=== PATIENT | female | born 1945 | race Caucasian/White ===

== ENCOUNTER 2018-10-21 13:06 | Inpatient (IN) ==
--- NOTE | 2018-10-21 13:31 | Emergency Department Note ---
Altered Mental Status HPI - General Chief Complaint: Altered Mental Status Stated Complaint: altered mental status Time Seen by Provider: 10/21/18 13:22 Source: other Mode of arrival: wheelchair Limitations: altered mental status - History of Present Illness HPI Narrative: This 73-year-old female lives at [facility] in [place], a group home [facility]. She is transported here due to 3 days of decreased mental status acuity and interactivity. She has had several falls last week. Her baseline is alert and oriented and ambulates. On admission to the emergency room here a temperature of 99.9, pulse 93 a little bit of the low blood pressure with systolic 86/51. Patient and her care facility has narcotics ordered but does not appear to have had a real recent dose. She has some bruising of her bilateral shoulders. 3 weeks ago she was admitted at [facility] for hyperkalemia and on discharge was to do follow-up to have the low back pain and leg pain treated. She has had this gradually increasing over severe. She has a history of being injected with steroid and anesthetic by Dr. Jones for sciatica. REVIEW OF SYSTEMS: No chills or known recent fevers. Edema seems to have significantly worsened. Her Spironolactone was not discontinued when she was readmitted to [facility] in spite of reported discharge instructions to discontinue it. No nausea or vomiting. No stomach pain. No diarrhea. No dysuria or frequency. No chest pain. No shortness of breath. - Related Data Home Medications Medication Instructions Recorded Confirmed Albuterol Sulfate [Proventil Hfa] 6.7 gm IH PRN PRN 10/21/18 10/21/18 Aspirin [Lite Coat Aspirin] 325 mg PO DAILY 10/21/18 10/21/18 Cyanocobalamin (Vitamin B-12) 1,000 mcg PO DAILY 10/21/18 10/21/18 [Vitamin B-12] Ergocalciferol (Vitamin D2) 50,000 unit PO WEEKLY 10/21/18 10/21/18 [Vitamin D2] Ferrous Sulfate [Iron] 325 mg PO BID 10/21/18 10/21/18 Furosemide [Lasix] 40 mg PO DAILY 10/21/18 10/21/18 Gabapentin 600 mg PO BID 10/21/18 10/21/18 HYDROcodone/ACETAMINOPHEN [[place] 1 each PO PRN PRN 10/21/18 10/21/18 10-325 Tablet] Lidocaine [Lidocaine Pain Relief] 1 each TP DAILY 10/21/18 10/21/18 Methocarbamol [Robaxin-750] 750 mg PO Q6 PRN 10/21/18 10/21/18 Ranitidine HCl [Heartburn Relief] 150 mg PO BID 10/21/18 10/21/18 Spironolactone [Aldactone] 25 mg PO BID 10/21/18 10/21/18 Allergies Allergy/AdvReac Type Severity Reaction Status Date / Time No Known Drug Allergies Allergy Unverified 10/21/18 13:20 Past Medical History - Social History smoking status: Unknown if ever smoked Physical Exam Limitations: altered mental status General appearance: alert (intermittentl), in distress (With intermittent [id number] movements with knees up. More comfortable sitting at times.), sleepy Head: atraumatic, normocephalic Eye: Present: EOMI ENT: mucous membranes dry Neck: Present: trachea midline. Absent: lymphadenopathy, thyromegaly Chest: Present: symmetric chest wall rise Respiratory: Present: normal lung sounds bilaterally (Somewhat distant.). Absent: respiratory distress, wheezes, stridor, accessory muscle use, prolonged expiratory phase Cardiovascular: Present: regular rate, normal rhythm. Absent: systolic murmur, diastolic murmur Abdominal: Present: other (Abdomen seems rather firm but seems to have rather pronounced abdominal muscles.). Absent: distention, tenderness, guarding, rebound, rigidity, organomegaly, mass Extremities: Present: pretibial edema (23 pitting edema bilateral.). Absent: pedal edema, calf tenderness Back: Absent: CVA tenderness (R), CVA tenderness (L), spinous process tenderness Neurological: Present: alert, oriented X3 Psychiatric: Present: serious. Absent: agitated, anxious, tearful Skin: Present: warm, dry, other (Anterior lower half of her tibial regions are quite dry with some cracking trace pinkness and trace warmth.) Course Vital Signs Temperature 99.9 F H 10/21/18 13:15 Pulse Rate 93 H 10/21/18 13:15 Respiratory Rate 21 10/21/18 13:15 Blood Pressure 86/51 10/21/18 13:15 Temperature 98.9 F 10/21/18 20:59 Pulse Rate 96 H 10/21/18 20:41 Respiratory Rate 15 10/21/18 20:59 Blood Pressure 79/60 10/21/18 20:41 Pulse Oximetry (%) 93 10/21/18 20:41 Altered Mental Status - MDM Narrative Medical decision making narrative: Patient admitted admitted to the emergency room with 3-day history of mental status and some falls. Review of her chart indicates that she has had some narcotics prescribed. She continues to be on Spironolactone 25 twice daily in spite of her recent admission to [facility] for hyperkalemia 3 weeks ago. Low-grade fever of 99.9 and possibly low blood pressure necessitating metabolic and infectious/septic work-up. Return of labs includes a white count that is normal at 4.7. She still has anem ia similar to previous. Lactic acid is normal at 0.8. Metabolic panel includes a creatinine of 1.3 which is actually better than previously at 1.5. 4:25 PM approximately - discussing with patient's daughter, etc., request for if possible Dr. Jones, interventional radiologist at [facility], to repeat the injection that made such a difference in her difficult to control back pain. 5:10 PM - I spoke with hospitalist, Dr. Corinne Dominique, at [facility]. We thoroughly reviewed patient's medical and pain issues. Conclusion is to have patient's medical problems evaluated and further treated and medically maximized before considering pain intervention which could be done outpatient. Pending consultation with hospitalist. - Medical Records Medical records reviewed: Yes I reviewed the patient's medical records. - Lab Data Lab results reviewed: Yes I reviewed the patient's lab results. Result diagrams: 10/21/18 13:23 10/21/18 13:23 Lab Results 10/21/18 10/21/18 10/21/18 Range/Units 13:23 13:23 13:23 WBC 4.7 (4.5-11.0) K/mcL RBC 3.73 L (4.00-5.20) M/mcL Hgb 11.1 L (12.0-15.0) g/dL Hct 32.7 L (36.0-48.0) % POC Hct (36.0-48.0) % MCV 87.8 (80.0-100.0) fL MCH 29.7 (26.0-34.0) pg MCHC 33.8 (31.0-36.0) g/dL RDW 18.8 H (11.5-14.5) % Plt Count 229 (140-440) K/mcL MPV 9.6 (7.4-10.4) fL Gran % 71.0 (38.0-78.0) % Lymph % (Auto) 13.9 L (15.5-49.0) % [place] % (Auto) 13.6 H (1.0-12.0) % Eos % (Auto) 0.8 (0.0-7.0) % Baso % (Auto) 0.7 (0.0-2.0) % Gran # 3.4 (1.8-8.0) K/mcL Lymph # (Auto) 0.7 L (1.5-4.8) K/mcL [place] # (Auto) 0.6 (0.1-0.9) K/mcL Eos # (Auto) 0 (0.0-0.7) K/mcL Baso # (Auto) 0 (0.0-0.3) K/mcL VBG Lactic Acid 0.8 (0.5-2.0) mmol/L POC Sodium (133-145) mmol/L Sodium 126 L (133-145) mmol/L POC Potassium (3.3-5.1) mmol/L Potassium 6.3 H* (3.3-5.1) mmol/L POC Chloride (96-108) mmol/L Chloride 95 L (96-108) mmol/L Carbon Dioxide 17 L (22-30) mmol/L POC Total CO2 (22-30) mmol/L Anion Gap 14.0 (8-16) POC BUN (8-23) mg/dl BUN 30 H (8-23) mg/dl Creatinine 1.3 H (0.6-1.1) mg/dl POC Creatinine (0.6-1.1) mg/dl GFR Calculation 41 Glucose 78 (70-105) mg/dL POC Glucose (70-105) mg/dL Calcium 9.2 (8.6-10.4) mg/dl POC WB Ioniz Calcium (1.16-1.32) mmol/L Total Bilirubin 0.4 (0.0-1.0) mg/dL AST 36 (0-37) U/l ALT 15 (0-40) U/l Alkaline Phosphatase 88 (39-117) U/L Troponin T (0-0.03) ng/ml C-Reactive Protein 3.4 H (0.0-0.8) mg/dl Total Protein 6.9 (5.9-8.4) gm/dL Albumin 3.9 (3.2-5.2) gm/dL Globulin 3.0 (2.2-3.7) gm/dL Albumin/Globulin Ratio 1.3 (1.0-2.3) Urine Color Urine Appearance Urine pH (5.0-9.0) Ur Specific [place] (1.000-1.035) Urine Protein (NEG) mg/dL Urine Glucose (UA) (NEG) mg/dL Urine Ketones (NEG) mg/dL Urine Occult Blood (<0.03) mg/dL Urine Nitrate (NEG) Urine Bilirubin (NEG) mg/dL Urine Urobilinogen (NEG) mg/dL Ur Leukocyte Esterase (NEG) /uL Urine RBC (0-1) /hpf Urine WBC (0-4) /hpf Ur Squamous Epith Cells (0-4) /hpf Ur Transition Epith Cell (0-2) /hpf Urine Bacteria (0) /hpf Urine Mucus (0) /hpf Ur Culture Indicated? 10/21/18 10/21/18 10/21/18 Range/Units 13:23 13:53 18:27 WBC (4.5-11.0) K/mcL RBC (4.00-5.20) M/mcL Hgb (12.0-15.0) g/dL Hct (36.0-48.0) % POC Hct 34.0 L (36.0-48.0) % MCV (80.0-100.0) fL MCH (26.0-34.0) pg MCHC (31.0-36.0) g/dL RDW (11.5-14.5) % Plt Count (140-440) K/mcL MPV (7.4-10.4) fL Gran % (38.0-78.0) % Lymph % (Auto) (15.5-49.0) % Union % (Auto) (1.0-12.0) % Eos % (Auto) (0.0-7.0) % Baso % (Auto) (0.0-2.0) % Gran # (1.8-8.0) K/mcL Lymph # (Auto) (1.5-4.8) K/mcL Union # (Auto) (0.1-0.9) K/mcL Eos # (Auto) (0.0-0.7) K/mcL Baso # (Auto) (0.0-0.3) K/mcL VBG Lactic Acid (0.5-2.0) mmol/L POC Sodium 129 L (133-145) mmol/L Sodium (133-145) mmol/L POC Potassium 5.4 H (3.3-5.1) mmol/L Potassium (3.3-5.1) mmol/L POC Chloride 98 (96-108) mmol/L Chloride (96-108) mmol/L Carbon Dioxide (22-30) mmol/L POC Total CO2 21 L (22-30) mmol/L Anion Gap (8-16) POC BUN 25 H (8-23) mg/dl BUN (8-23) mg/dl Creatinine (0.6-1.1) mg/dl POC Creatinine 1.1 (0.6-1.1) mg/dl GFR Calculation Glucose (70-105) mg/dL POC Glucose 89 (70-105) mg/dL Calcium (8.6-10.4) mg/dl POC WB Ioniz Calcium 1.21 (1.16-1.32) mmol/L Total Bilirubin (0.0-1.0) mg/dL AST (0-37) U/l ALT (0-40) U/l Alkaline Phosphatase (39-117) U/L Troponin T 0.03 (0-0.03) ng/ml C-Reactive Protein (0.0-0.8) mg/dl Total Protein (5.9-8.4) gm/dL Albumin (3.2-5.2) gm/dL Globulin (2.2-3.7) gm/dL Albumin/Globulin Ratio (1.0-2.3) Urine Color Straw Urine Appearance Clear Urine pH 5.0 (5.0-9.0) Ur Specific [place] 1.012 (1.000-1.035) Urine Protein Neg (NEG) mg/dL Urine Glucose (UA) Negative (NEG) mg/dL Urine Ketones Neg (NEG) mg/dL Urine Occult Blood Neg (<0.03) mg/dL Urine Nitrate Neg (NEG) Urine Bilirubin Neg (NEG) mg/dL Urine Urobilinogen Neg (NEG) mg/dL Ur Leukocyte Esterase 25 A (NEG) /uL Urine RBC 1 (0-1) /hpf Urine WBC 1 (0-4) /hpf Ur Squamous Epith Cells 1 (0-4) /hpf Ur Transition Epith Cell < 1 (0-2) /hpf Urine Bacteria 0 (0) /hpf Urine Mucus Few (0) /hpf Ur Culture Indicated? No - Radiology Data Radiology results reviewed: Yes I reviewed the patient's radiology results. - EKG Data EKG results narrative: No acute coronary syndrome findings. This ECG will be read by a wildlife ecology professor. Disposition Pt seen by POWER GENER[employer] PLANT OPERATOR/PA only: No Clinical Impression: Mental status, decreased, Lumbar radiculopathy, acute, Hyperkalemia, Hyponatremia, Falls frequently Contusion of shoulder area Qualifiers: Encounter type: initial encounter Laterality: unspecified laterality Qualified Code(s): S40.019A - Contusion of unspecified shoulder, initial encounter Summary: Patient's hyperkalemia probably related to Spironolactone not being discontinued. She has chronic renal disease in the past declared to be stage III. Creatinine was 1.3. Her potassium here was 6.3. Sodium is 126. Her blood pressures usually are 104-126. Several times here were in the 80s or 90s. Her mental status seemed to be intermittently very capable and interactive and appropriate and good historian but she was quite sleepy. She was very restless with difficulties controlling pain by rolling into different positions repeatedly and patiently. Blood cultures and urine cultures were ordered. She will urine dip showed positive leukocyte but on microbiology there was no l eukocytes and no bacteria. Culture was ordered. She has significant edema bilateral lower extremities. Eventually conclusions with repeat CT scan being unremarkable for any new findings and with not being able to transfer to [facility] for possible injection therapy for the cause of her pain etc., was accepted to be admitted here. Disposition: Xfer As Inpt ([facility]) Condition: Fair Referrals: Jordan Snell DO [Primary Care Provider] -
[2018-10-21] MEDS ORDERED: CALCIUM CHLORIDE 1,000 MG in DEXTROSE 5% IN WATER 50 ML IV ONE (13:51)
[2018-10-21] MEDS ORDERED: FUROSEMIDE 40 MG/4 ML VIAL IV ONE (13:52)
[2018-10-21 14:05] LABS: Basophils # (Auto) 0 K/mcL (0.0-0.3); Basophils % (Auto) 0.7 % (0.0-2.0); Eosinophils # (Auto) 0 K/mcL (0.0-0.7); Eosinophils % (Auto) 0.8 % (0.0-7.0); Lymphocytes # (Auto) 0.7 K/mcL (1.5-4.8); Lymphocytes % (Auto) 13.9 % (15.5-49.0); Mean Cell Volume 87.8 fL (80.0-100.0); Mean Corpuscular HGB Conc 33.8 g/dL (31.0-36.0); Monocytes # (Auto) 0.6 K/mcL (0.1-0.9); Monocytes % (Auto) 13.6 % (1.0-12.0); Platelet Count 229 K/mcL (140-440); RBC 3.73 M/mcL (4.00-5.20); Red Cell Distribution Width 18.8 % (11.5-14.5)
[2018-10-21] MEDS ORDERED: CALCIUM CHLORIDE 1,000 MG/10 ML SYRINGE IV ONE (14:17)
[2018-10-21 14:27] LABS: Appearance,Urine CLEAR; Bacteria,Urine 0 /hpf (0); Bilirubin,Urine NEG (NEG); Color,Urine STRAW; Glucose,Urine (UA) NEGATIVE (NEG); Leukocyte Esterase,Urine 25 /uL (NEG); Mucus,Urine FEW /hpf (0); Protein,Urine NEG (NEG); Specific Gravity,Urine 1.012 (1.000-1.035); Urine Blood NEG mg/dL (<0.03); Urine RBC 1 /hpf (0-1); Urine Squamous Epithelial Cell 1 /hpf (0-4); Urine Transitional Epi Cells < 1 /hpf (0-2); Urine WBC 1 /hpf (0-4); Urobilinogen,Urine NEG (NEG)
[2018-10-21 14:35] LABS: ALT/SGPT 15 U/l (0-40); Albumin 3.9 gm/dL (3.2-5.2); Albumin/Globulin Ratio 1.3 (1.0-2.3); Alkaline Phosphatase 88 U/L (39-117); Blood Urea Nitrogen 30 mg/dl (8-23); C-Reactive Protein 3.4 mg/dl (0.0-0.8)
[2018-10-21] MEDS ORDERED: 0.9 % SODIUM CHLORIDE 1,000 ML IV ONE ×2 (14:39→15:32)
--- NOTE | 2018-10-21 15:10 | Cat Scan Report ---
CLINICAL INFORMATION: Fusion COMPARISON: None. TECHNIQUE: 2.5 mm helical slices were obtained in the skull base to vertex. Following reconstruction, axial reformatted images were reviewed at bone and parenchymal windows. The exam was performed using radiation dose optimization techniques including, but not limited to, automated exposure control, adjustment of the mA and/or kV according to patient size and use of iterative reconstruction technique. FINDINGS: Motion artifact mildly degrading the quality of images. The ventricles, sulci, fissures, and cisterns are normal in size and configuration for the patient's age. No extra-axial fluid collections are identified. Patchy chronic ischemic changes noted the deep cerebral white matter - typical for age. The cerebrum, brainstem and cerebellum are otherwise, unremarkable. There is no evidence of hemorrhage, mass effect, or edema. Bone windows show no osseous abnormality. IMPRESSION: Minimal atrophy and patchy chronic ischemic changes in the the cerebral white matter that typical for age. No acute finding Interpreted and Authenticated by: Jordan Covington 10/21/18
[2018-10-21] MEDS ORDERED: ONDANSETRON 4 MG/2 ML VIAL IV ONE (15:22)
[2018-10-21] MEDS: HYDROmorphone 2 MG/ML VIAL IV PRN ×4 (15:32→19:53)
--- NOTE | 2018-10-21 18:45 | Cat Scan Report ---
CLINICAL INFORMATION: Trauma now with back pain COMPARISON: None. TECHNIQUE: 0.625 mm helical slices were obtained from the mid T12 through mid S2 vertebral bodies. Following reconstruction, 2.5 mm coronal, sagittal, and axial reformations (angle to the disc spaces) were processed. Exam was reviewed at bone and soft tissue windows.The exam was performed using radiation dose optimization techniques including, but not limited to, automated exposure control, adjustment of the mA and/or kV according to patient size and use of iterative reconstruction technique. FINDINGS: Sagittal and coronal reformatted images show the lumbar spine is anatomically aligned. There are no fractures. Moderate size Schmorl's nodes invaginate the L2, L3 and L4 endplates. No significant osseous abnormality. Soft tissues are unremarkable. T11-T12, T12-L1 and L1-2 disc levels are normal. At L2-3, minimal broad disc spur complex and facet arthropathy results in minimal central canal narrowing. At L3-4, mild broad disc protrusion, ligament flavum enlargement and facet arthropathy result in moderate central canal, likely bilateral lateral recess and mild bilateral IV foraminal narrowing with probable impingement of the descending L4 nerve roots. At L4-5, moderate broad disc protrusion, ligament flavum enlargement and facet arthropathy result in moderate central canal, bilateral lateral recess and IV foraminal narrowing and mild impingement of the exiting L4 and the descending L5 nerve roots. L5-S1, a mild broad disc protrusion with bilateral facet arthropathy appreciated. IMPRESSION: No fracture or other posttraumatic change. Degenerative changes, most severe at L2-3 and L3-4, as described Interpreted and Authenticated by: Jordan Covington 10/21/18
[2018-10-21] MEDS ORDERED: DEXAMETHASONE 10 MG/ML VIAL IV ONE ×2 (21:11→22:50)
--- NOTE | 2018-10-21 22:09 | Internal Med History&Physical ---
Medical - H&P: HPI Patient information: Note initiated : 10/21/18 at 10:05 pm Service Date, if different from initiated Date: [] Patient: Nany Lara a 73 y/o F admitted on for Altered Mental Status. Chief Complaint: [] History of present illness: Ms. Lara is a 73 year old F Who presents the ED from residential facility with decreased level of consciousness /weakness. While she was here she also was noted to complain of her chronic back pain with radiculopathy, but this was not the primary reason why she was sent in. Patient was at [facility] 3 weeks ago for hyperkalemia. Her Aldactone was stopped. However it still on her medication list does sound like she is been getting it at the nursing facility. He was found to have calcium 6.3 when she came in and a sodium of 126. She reports poor oral intake cannel not much else other than coffee. She had a CT brain which is unremarkable EKG showed no changes from previous she had a lumbar CT which does show degenerative joint and disc protrusions no acute fractures. I do not have all labs but apparently from the ED note her creatinine is 1.3 and it was recently 1.5. She is on [place] as well as Robaxin and gabapentin. She has received an epidural injection by Dr. Jones in the recent past which could improvement in radiculopathy. It sounds like she sees [facility] pain management as well. She denies any complaints other than feeling weak. She is drowsy in the ED after narcotic medications for pain. She is sitting up in bed does not complain of any pain at this time. Family member states that when she is laying on her back is when she is in significant amount of pain but when she sitting up she is comfortable. She did receive IV fluids with Lasix and calcium gluconate and a repeat potassium which was 5.4. Review of Systems: Pertinent positives as above. Denies headache/fever/chills/nausea/vomiting/chest or abdominal pain/cough /dyspnea/diarrhea. Main 10 point review of systems reviewed negative Medical - H&P: PMH Medical history: Medical History (Last Updated 10/21/18 @ 21:22 by Niall Cameron DO) Edema (Acute) Peripheral arterial disease (Chronic) Chronic anticoagulation (Chronic) CKD (chronic kidney disease), stage III (Chronic) Hypotension (Chronic) Sciatica (Chronic) chronic low back pain Anemia (Chronic) GERD MAXINE Past surgical history: Stent to the leg Social History Patient resides at [facility] Smokes a few cigarettes per day Drink alcohol rarely Uses a walker to ambulate Medical - H&P: Meds Home Medications Medication Instructions Recorded Confirmed Type Albuterol Sulfate [Proventil Hfa] 6.7 gm IH PRN PRN 10/21/18 10/21/18 History Aspirin [Lite Coat Aspirin] 325 mg PO DAILY 10/21/18 10/21/18 History Cyanocobalamin (Vitamin B-12) 1,000 mcg PO DAILY 10/21/18 10/21/18 History [Vitamin B-12] Ergocalciferol (Vitamin D2) 50,000 unit PO WEEKLY 10/21/18 10/21/18 History [Vitamin D2] Ferrous Sulfate [Iron] 325 mg PO BID 10/21/18 10/21/18 History Furosemide [Lasix] 40 mg PO DAILY 10/21/18 10/21/18 History Gabapentin 600 mg PO BID 10/21/18 10/21/18 History HYDROcodone/ACETAMINOPHEN [[place] 1 each PO PRN PRN 10/21/18 10/21/18 History 10-325 Tablet] Lidocaine [Lidocaine Pain Relief] 1 each TP DAILY 10/21/18 10/21/18 History Methocarbamol [Robaxin-750] 750 mg PO Q6 PRN 10/21/18 10/21/18 History Ranitidine HCl [Heartburn Relief] 150 mg PO BID 10/21/18 10/21/18 History Spironolactone [Aldactone] 25 mg PO BID 10/21/18 10/21/18 History Allergies Allergy/AdvReac Type Severity Reaction Status Date / Time No Known Drug Allergies Allergy Unverified 10/21/18 13:20 Medical - H&P: Exam - Constitutional Vitals: Temp Pulse Resp BP Pulse Ox 99.2 F H 96 H 20 121/67 93 10/21/18 21:48 10/21/18 20:41 10/21/18 21:48 10/21/18 21:21 10/21/18 20:41 Exam: General: Drowsy ,Awake, No acute Distress Eyes/N/T: EOMI, PEERL, Head/Neck: neck supple, normocephalic atraumatic CV: RRR, No murmurs, normal s1/s2 Pulm: Clear b/l, no wheezing/rhonchi/rales Abd: soft, nontender, +BS x4 Ext: no clubbing/cyanosis. 3+ b/l LE edema Neuro: Drowsy but awakens, no focal deficits, moves all extremities, CN 2-12 grossly intact, symmetrical strength b/l upper/lower, sensations intact b/l upper/lower Skin: warm/dry, venous stasis changes to lower extremities Medical - H&P: Reslt - Labs CBC & Chem 7: 10/21/18 13:23 10/21/18 13:23 Labs: Short CBC 10/21/18 Range/Units 13:23 WBC 4.7 (4.5-11.0) K/mcL Hgb 11.1 L (12.0-15.0) g/dL Hct 32.7 L (36.0-48.0) % Plt Count 229 (140-440) K/mcL BMP 10/21/18 13:23 Sodium 126 L Potassium 6.3 H* Chloride 95 L Carbon Dioxide 17 L BUN 30 H Creatinine 1.3 H Glucose 78 Calcium 9.2 Cardiac Enzymes 10/21/18 Range/Units 13:23 Troponin T 0.03 (0-0.03) ng/ml Liver Function 10/21/18 Range/Units 13:23 Total Bilirubin 0.4 (0.0-1.0) mg/dL AST 36 (0-37) U/l ALT 15 (0-40) U/l Alkaline Phosphatase 88 (39-117) U/L Albumin 3.9 (3.2-5.2) gm/dL Urine 10/21/18 Range/Units 13:53 Urine Color Straw Urine Appearance Clear Urine pH 5.0 (5.0-9.0) Ur Specific [place] 1.012 (1.000-1.035) Urine Protein Neg (NEG) mg/dL Urine Glucose (UA) Negative (NEG) mg/dL Medical - H&P: A/P - Narrative A/P Narrative: A: *AMS (decreased LOC): Multifactorial including sedating medications and metabolic -She is on gabapentin and Robaxin and [place] *Hyponatremia: Poor oral intake and diuretics *Hyperkalemia: Secondary to Aldactone in the setting of CKD *Chronic low back pain and radiculopathy: Has had epidural in the past with success. Follows with pain management *PVD, with stent to the leg by Dr. Jones: *CKD III: *MAXINE: *Generalized weakness/deconditioning/debility: *GERD: *Tobacco abuse: *Chronic peripheral edema P: -Monitor electrolytes -Pain control with heating pad/muscle relaxer/narcotics but with caution. Decrease gabapentin, hold today dose. dexamethasone x1 -May need to consult our pain management group if still have difficulties with sedation and pain -Aldactone stopped. - - -PT/OT -Smoking cessation counseling -ppx: lovenox/home ppi
[2018-10-21] MEDS ORDERED: IPRATROPIUM/ALBUTEROL 3 ML AMPUL.NEB NEB PRN (22:50)
[2018-10-21] MEDS ORDERED: MAGNESIUM SULFATE 2 GM/50 ML BAG IV PRN (22:50)
[2018-10-21] MEDS ORDERED: POLYETHYLENE GLYCOL 3350 17 GM PACKET PO PRN (22:50)
[2018-10-21] MEDS ORDERED: LACTULOSE 20 GM/30 ML ORAL.SOL PO PRN (22:50)
[2018-10-21] MEDS ORDERED: ONDANSETRON 4 MG/2 ML VIAL IV PRN (22:50)
[2018-10-21] MEDS ORDERED: POTASSIUM CHLORIDE 20 MEQ TABLET PO PRN ×2 (22:50)
[2018-10-21] MEDS ORDERED: SENNOSIDES 1 TABLET PO PRN (22:50)
[2018-10-21] MEDS ORDERED: ALBUTEROL SULFATE 1 PUFF INHALER IH PRN (22:50)
[2018-10-21] MEDS ORDERED: METHOCARBAMOL (PP) 750 MG TABLET (#4) PO PRN (22:50)
[2018-10-21] MEDS: METHOCARBAMOL 750 MG TABLET PO PRN (23:33)
[2018-10-21] MEDS: 0.9 % SODIUM CHLORIDE 10 ML SYRINGE IV SCH (23:33)
[2018-10-22 00:37] LABS: Anisocytosis 1+ (NONE SEEN); Band Neutrophils % 1 % (0-10); Basophils % (Manual) 1 % (0-2); Eosinophils % (Manual) 1 % (0-7); Lymphocytes % 20 % (15-49); Monocytes % (Manual) 15 % (1-12); Platelet Estimate NORMAL (NORMAL); RBC Morphology ABNORM (NORMAL); Segmented Neutrophils % 62 % (38-78)
[2018-10-22] MEDS: HYDROcodone/APAP 10/325MG TABLET PO PRN ×3 (05:38→21:30)
[2018-10-22] MEDS: 0.9 % SODIUM CHLORIDE 10 ML SYRINGE IV SCH ×3 (05:39→20:14)
[2018-10-22 06:28] LABS: Basophils # (Auto) 0 K/mcL (0.0-0.3); Basophils % (Auto) 0.1 % (0.0-2.0); Eosinophils # (Auto) 0 K/mcL (0.0-0.7); Eosinophils % (Auto) 0.2 % (0.0-7.0); Granulocytes % (Auto) 91.2 % (38.0-78.0); Lymphocytes # (Auto) 0.3 K/mcL (1.5-4.8); Lymphocytes % (Auto) 6.9 % (15.5-49.0); Mean Cell Volume 88.6 fL (80.0-100.0); Mean Corpuscular HGB Conc 33.1 g/dL (31.0-36.0); Monocytes # (Auto) 0.1 K/mcL (0.1-0.9); Monocytes % (Auto) 1.6 % (1.0-12.0); Platelet Count 218 K/mcL (140-440); RBC 3.91 M/mcL (4.00-5.20); Red Cell Distribution Width 19.3 % (11.5-14.5)
[2018-10-22 06:38] LABS: ALT/SGPT 14 U/l (0-40); Albumin 3.6 gm/dL (3.2-5.2); Albumin/Globulin Ratio 1.2 (1.0-2.3); Alkaline Phosphatase 83 U/L (39-117); Bilirubin,Direct < 0.2 mg/dL (0.0-0.3); Blood Urea Nitrogen 28 mg/dl (8-23); Gamma Glutamyl Transpeptidase 27 U/L (5-36); Uric Acid 6.3 mg/dL (2.5-8.0)
[2018-10-22] MEDS: PIPERACILLIN SODIUM/TAZOBACTAM 2.25 GM in DEXTROSE 5% IN WATER 50 ML IV SCH ×4 (06:54→23:26)
[2018-10-22] MEDS ORDERED: SODIUM BICARBONATE 650 MG TABLET PO ONE (07:11)
--- NOTE | 2018-10-22 07:11 | Internal Med Progress Note ---
Medical - PN: Subj Patient information: Note initiated : 10/22/18 at 6:59 am Service Date, if different from initiated Date: [] Patient: Nany aLra 73 y/o F admitted on 10/21/18 for Altered Mental Status. Chief Complaint: [] Interval history: Ms. Lara is a 73 year old F Who presents [facility] from [facility] with decreased level of consciousness /weakness. While she was here she also was noted to complain of her chronic back pain with radiculopathy, but this was not the primary reason why she was sent in. Patient was at [facility] 3 weeks ago for hyperkalemia. Her Aldactone was stopped. However it still on her medication list does sound like she is been getting it at the nursing facility. He was found to have calcium 6.3 when she came in and a sodium of 126. She reports poor oral intake cannel not much else other than coffee. She had a CT brain which is unremarkable EKG showed no changes from previous she had a lumbar CT which does show degenerative joint and disc protrusions no acute fractures. I do not have all labs but apparently from the ED note her creatinine is 1.3 and it was recently 1.5. She is on [place] as well as Robaxin and gabapentin. She has received an epidural injection by Dr. Jones in the recent past which could improvement in radiculopathy. It sounds like she sees [facility] pain management as well. She denies any complaints other than feeling weak. She is drowsy in the ED after narcotic medications for pain. She is sitting up in bed does not complain of any pain at this time. Family member states that when she is laying on her back is when she is in significant amount of pain but when she sitting up she is comfortable. She did receive IV fluids with Lasix and calcium gluconate and a repeat potassium which was 5.4. 10/22 Patient slept all right last night. Per nurse morphine seems to make her quite drowsy. I saw this morning she was awake and answering questions. She states her pain starts in the right back hip region as described as a shooting pain down the back of her leg to her right knee. Family is present. Denies any other complaints. Urine culture growing gram-negative bacillus and 104 blood draws growing gram-positive bacillus. Cortisol level low and ACTH stimulation test pending. Family she sees Dr. Benavides and will contact him regarding eventual possible epidural injection and further recommendations in the meantime. Review of Systems: denies headache/fever/chills/nausea/vomiting/chest or abdominal pain/cough/dys pnea/diarrhea. Otherwise see above. - Constitutional Vitals: Vital Signs Temp Pulse Resp BP Pulse Ox 97.9 F 96 H 15 108/43 98 10/22/18 04:00 10/22/18 04:40 10/22/18 04:00 10/22/18 04:39 10/22/18 04:40 Period Temp Pulse Resp BP Sys/Bell Pulse Ox Last 24 Hr 97.0 F-99.9 F 79-106 9-35 74-164/43-129 89-100 Intake and Output 10/21/18 10/22/18 10/22/18 21:59 05:59 13:59 Intake Total 1999 Output Total 6150 850 Balance -4150 -850 Weight 58.967 kg Intake & Output: Intake & Output 10/21/18 10/22/18 10/22/18 21:59 05:59 13:59 Intake Total 2000 Output Total 6150 850 Balance -4150 -850 Weight 58.967 kg Intake: IV 2000 Sodium Chloride 0.9% 1,000 ml @ 2000 Wide Open IV BOLUS ONE Rx#: [id number] Output: Urine Catheter Amount 200 Void Amount 6150 650 Other: Urine Appearance Clear Clear Urine Color Bright Yellow Bright Yellow Urine Odor Normal Exam: General: Awake, No acute Distress Eyes/N/T: EOMI, Head/Neck: neck supple, CV: RRR, No murmurs, Pulm: Clear b/l, no wheezing/rhonchi/rales Abd: soft, nontender, +BS x4 Ext: no clubbing/cyanosis. 2+ b/l LE edema chronic Neuro: awake, no focal deficits, moves all extremities, answers all questions Skin: warm/dry, venous stasis changes to lower extremities Medical - PN: Obj Da - Labs CBC & Chem 7: 10/22/18 04:00 10/22/18 04:00 Labs: Abnormal Lab Results 10/22/18 10/22/18 10/21/18 04:00 04:00 18:27 WBC 3.7 L RBC 3.91 L Hgb 11.5 L Hct 34.6 L POC Hct 34.0 L RDW 19.3 H MPV 10.5 H Gran % 91.2 H Lymph % (Auto) 6.9 L Evans % (Auto) Lymph # (Auto) 0.3 L Monocytes % (Manual) RBC Morphology Anisocytosis POC Sodium 129 L Sodium 126 L POC Potassium 5.4 H Potassium 5.8 H Chloride 94 L Carbon Dioxide 18 L POC Total CO2 21 L POC BUN 25 H BUN 28 H Creatinine 1.2 H Magnesium 1.5 L Lactate Dehydrogenase 330 H C-Reactive Protein Ur Leukocyte Esterase 10/21/18 10/21/18 10/21/18 13:53 13:23 13:23 WBC RBC Hgb Hct POC Hct RDW MPV Gran % Lymph % (Auto) Evans % (Auto) Lymph # (Auto) Monocytes % (Manual) 15 H RBC Morphology Abnorm A Anisocytosis 1+ A POC Sodium Sodium 126 L POC Potassium Potassium 6.3 H* Chloride 95 L Carbon Dioxide 17 L POC Total CO2 POC BUN BUN 30 H Creatinine 1.3 H Magnesium Lactate Dehydrogenase C-Reactive Protein 3.4 H Ur Leukocyte Esterase 25 A 10/21/18 13:23 WBC RBC 3.73 L Hgb 11.1 L Hct 32.7 L POC Hct RDW 18.8 H MPV Gran % Lymph % (Auto) 13.9 L Evans % (Auto) 13.6 H Lymph # (Auto) 0.7 L Monocytes % (Manual) RBC Morphology Anisocytosis POC Sodium Sodium POC Potassium Potassium Chloride Carbon Dioxide POC Total CO2 POC BUN BUN Creatinine Magnesium Lactate Dehydrogenase C-Reactive Protein Ur Leukocyte Esterase Meds: Medications Hydrocodone Bitart/Acetaminophen ([place] 10/325mg) 1 tab PO Q4HP PRN PRN Reason: Pain Last Admin: 10/22/18 05:38 Dose: 1 tab Documented by: Albuterol Sulfate (Ventolin) 0 puff IH PRN PRN PRN Reason: Shortness Of Breath Albuterol/Ipratropium (Duoneb) 3 ml NEB Q4HP PRN PRN Reason: Shortness Of Breath Aspirin (Ecotrin) 325 mg PO DAILY [facility] Docusate Sodium (Colace) 100 mg PO BID [facility] Enoxaparin Sodium (Lovenox) 40 mg SQ DAILY [facility] Famotidine (Pepcid) 20 mg PO HS [facility] Furosemide (Lasix) 40 mg PO DAILY [facility] Gabapentin (Neurontin) 200 mg PO BID [facility] Magnesium Sulfate (Magnesium Sulfate) 2 gm in 50 mls @ 50 mls/hr IV UD PRN PRN Reason: Magnesium </= 1.6 Piperacillin Sod/Tazobactam (Sod 2.25 gm/ Dextrose) 50 mls @ 100 mls/hr IV Q6H [facility]; Protocol Last Admin: 10/22/18 06:54 Dose: 100 mls/hr Documented by: Lactulose (Cephulac) 10 gm PO DAILYP PRN PRN Reason: Constipation Lidocaine (Lidoderm) 1 patch TOPICAL DAILY@1000 [facility] Methocarbamol (Robaxin) 750 mg PO Q6HP PRN PRN Reason: Pain Last Admin: 10/21/18 23:33 Dose: 750 mg Documented by: Morphine Sulfate (Morphine) 2 - 4 mg IV Q3HP PRN PRN Reason: PAIN LEVEL > 6 Last Admin: 10/22/18 02:09 Dose: 2 mg Documented by: Ondansetron HCl (Zofran) 4 mg IV Q4HP PRN PRN Reason: Nausea And Vomiting Polyethylene Glycol (Miralax) 17 gm PO DAILYP PRN PRN Reason: Constipation Potassium Chloride (Kdur) 40 meq PO UD PRN PRN Reason: Potssium is 3-3.5 Potassium Chloride (Kdur) 40 meq PO UD PRN PRN Reason: Potassium < 3 Senna (Senokot) 2 tab PO HSP PRN PRN Reason: Constipation Sodium Chloride (Saline Flush) 10 ml IV Q8 [facility] Last Admin: 10/22/18 05:39 Dose: 10 ml Documented by: Medical - PN: A/P - Time Spent With Patient Total time spent is greater than 50% in coordination of care (as documented) at patient's floor/unit and/or counseling patient: - Narrative A/P Narrative: A: *AMS (decreased LOC): Multifactorial including sedating medications and metabolic -She is on gabapentin and Robaxin and [place] *Hyponatremia (h/o same): suspect siadh vs adrenal - *Hyperkalemia: Secondary to Aldactone in the setting of CKD -improving *Chronic low back pain and radiculopathy: Has had epidural in the past with success. Follows with pain management *metabolic acidosis, non-gap; ?adrenal given electrolyte abnorm and low cortisol *UTI: *GPB in 1/2 blood draws *PVD, with stent to the leg by Dr. Jones: *CKD III (baseline ~1.3): follows with Dr. Dubois - *MAXINE & B12 deficiency: *Generalized weakness/deconditioning/debility: *GERD: *Tobacco abuse: *Chronic peripheral edema *Leukopenia: noted during [facility] admission *h/o NSC lung CA: P: -Monitor electrolytes -Pain control with heating pad/muscle relaxer/narcotics but with caution. Decrease gabapentin. dexamethasone x1 -consult Dr. Briones -May need to consult our pain management group if still have difficulties with sedation and pain -Aldactone stopped -urine studies -pending cortisol level -zosyn, pending final blood C&S -acth stim test -PT/OT -Smoking cessation counseling -ppx: lovenox/home ppi Medical - PN: Qual - Stroke Symptom Onset Unknown: No - VTE Deep Vein Thrombosis/Pulmonary Embolism Present on Admission: No
[2018-10-22] MEDS: LIDOCAINE PATCH TOPICAL SCH (08:58)
[2018-10-22] MEDS: DOCUSATE SODIUM 100 MG CAPSULE PO SCH ×3 (08:58→20:07)
[2018-10-22] MEDS ORDERED: FUROSEMIDE 40 MG TABLET PO SCH (09:00)
[2018-10-22] MEDS ORDERED: ASPIRIN 325 MG ENTERIC COATED TABLET PO SCH (09:00)
[2018-10-22] MEDS ORDERED: GABAPENTIN 100 MG CAPSULE PO SCH ×2 (09:00→21:00)
[2018-10-22] MEDS: ENOXAPARIN 40 MG/0.4 ML SYRINGE SQ SCH (09:03)
[2018-10-22 09:56] LABS: Osmolality,Urine 544 mOsm/kg (80-1000)
[2018-10-22] MEDS ORDERED: COSYNTROPIN 0.25 MG VIAL IV ONE (09:58)
[2018-10-22 11:58] LABS: HDL Cholesterol 64 mg/dl (>40); LDL Cholesterol,Calculated 93 mg/dl (SEE CHART)
--- NOTE | 2018-10-22 12:11 | XRay Report ---
CLINICAL INFORMATION: ?constipation COMPARISON: None. FINDINGS: There is moderate stool in rectosigmoid region - the stool gas pattern is, otherwise, unremarkable. There is no free air, soft tissue mass, organomegaly or pathologic calcification. IMPRESSION: No acute disease. Moderate stool in the rectosigmoid region Interpreted and Authenticated by: Jordan Covington 10/22/18
[2018-10-22] MEDS: METHOCARBAMOL 750 MG TABLET PO PRN (12:59)
[2018-10-22] MEDS ORDERED: MIDAZOLAM 2 MG/2 ML VIAL IV ONE ×2 (15:15)
[2018-10-22] MEDS ORDERED: fentaNYL 100 MCG/2 ML VIAL IV ONE (15:15)
[2018-10-22] MEDS: FERROUS SULFATE 325 MG TABLET PO SCH (17:45)
[2018-10-22] MEDS: SODIUM CHLORIDE 1 GM TABLET PO SCH ×2 (17:49→20:11)
[2018-10-22] MEDS: FAMOTIDINE 20 MG TABLET PO SCH (20:06)
[2018-10-22] MEDS: SODIUM BICARBONATE 650 MG TABLET PO ONE ×2 (20:41→21:33)
[2018-10-23] MEDS: 0.9 % SODIUM CHLORIDE 10 ML SYRINGE IV SCH ×4 (05:25→13:01)
[2018-10-23] MEDS: PIPERACILLIN SODIUM/TAZOBACTAM 2.25 GM in DEXTROSE 5% IN WATER 50 ML IV SCH ×3 (05:25→17:29)
[2018-10-23 06:39] LABS: Basophils # (Auto) 0 K/mcL (0.0-0.3); Basophils % (Auto) 0 % (0.0-2.0); Eosinophils # (Auto) 0 K/mcL (0.0-0.7); Eosinophils % (Auto) 0.1 % (0.0-7.0); Granulocytes % (Auto) 64.9 % (38.0-78.0); Lymphocytes # (Auto) 0.7 K/mcL (1.5-4.8); Lymphocytes % (Auto) 21.1 % (15.5-49.0); Mean Cell Volume 88.8 fL (80.0-100.0); Mean Corpuscular HGB Conc 33.4 g/dL (31.0-36.0); Monocytes # (Auto) 0.5 K/mcL (0.1-0.9); Monocytes % (Auto) 13.9 % (1.0-12.0); Platelet Count 222 K/mcL (140-440); RBC 3.51 M/mcL (4.00-5.20); Red Cell Distribution Width 18.3 % (11.5-14.5)
--- NOTE | 2018-10-23 07:27 | Internal Med Progress Note ---
Medical - PN: Subj Patient information: Note initiated : 10/23/18 at 7:19 am Service Date, if different from initiated Date: [] Patient: Nany Lara 73 y/o F admitted on 10/21/18 for Altered Mental Status. Chief Complaint: [] Interval history: Ms. Lara is a 73 year old F Who presents the ED from senior care facility with decreased level of consciousness /weakness. While she was here she also was noted to complain of her chronic back pain with radiculopathy, but this was not the primary reason why she was sent in. Patient was at [facility] 3 weeks ago for hyperkalemia. Her Aldactone was stopped. However it still on her medication list does sound like she is been getting it at the nursing facility. He was found to have calcium 6.3 when she came in and a sodium of 126. She reports poor oral intake cannel not much else other than coffee. She had a CT brain which is unremarkable EKG showed no changes from previous she had a lumbar CT which does show degenerative joint and disc protrusions no acute fractures. I do not have all labs but apparently from the ED note her creatinine is 1.3 and it was recently 1.5. She is on [place] as well as Robaxin and gabapentin. She has received an epidural injection by Dr. Jones in the recent past which could improvement in radiculopathy. It sounds like she sees [facility] pain management as well. She denies any complaints other than feeling weak. She is drowsy in the ED after narcotic medications for pain. She is sitting up in bed does not complain of any pain at this time. Family member states that when she is laying on her back is when she is in significant amount of pain but when she sitting up she is comfortable. She did receive IV fluids with Lasix and calcium gluconate and a repeat potassium which was 5.4. 10/22 Patient slept all right last night. Per nurse morphine seems to make her quite drowsy. I saw this morning she was awake and answering questions. She states her pain starts in the right back hip region as described as a shooting pain down the back of her leg to her right knee. Family is present. Denies any other complaints. Urine culture growing gram-negative bacillus and 104 blood draws growing gram-positive bacillus. Cortisol level low and ACTH stimulation test pending. Family she sees Dr. Benavides and will contact him regarding eventual possible epidural injection and further recommendations in the meantime. 10/23 Poor sleep last night. Lethargic this morning. Sitting in chair and nodding off. Arousable but then nods off. Unable to get MRI yesterday patient uncooperative. CT with lumbar DJD and right hip osteoarthritis. Electrolytes improved. ABG okay with no CO2 retention.. Review of Systems: denies headache/fever/chills/nausea/vomiting/chest or abdominal pain/cough/dyspnea/diarrhea. Otherwise see above. - Constitutional Vitals: Vital Signs Temp Pulse Resp BP Pulse Ox 97.0 F 88 12 121/66 95 10/23/18 06:11 10/22/18 20:00 10/23/18 06:11 10/23/18 06:20 10/23/18 06:11 Period Temp Pulse Resp BP Sys/Bell Pulse Ox Last 24 Hr 97.0 F-99.0 F 70-101 10-20 70-152/40-82 94-99 Intake and Output 10/22/18 10/23/18 10/23/18 21:59 05:59 13:59 Intake Total 430 50 50 Output Total 200 700 Balance 230 -650 50 Weight 58.876 kg Intake & Output: Intake & Output 10/22/18 10/23/18 10/23/18 21:59 05:59 13:59 Intake Total 430 50 50 Output Total 200 700 Balance 230 -650 50 Weight 58.876 kg Intake: IV 50 50 50 Zosyn 2.25 gm In Dextrose 5% in 50 50 50 Water 50 ml @ 100 mls/hr IV Q6H [facility] Rx#:[id number] Oral 380 Output: Urine Catheter Amount 700 Void Amount 200 Other: Percent of Meal Consumed 100% Feeding Ability Assist with Tray Set Up Urine Appearance Clear Urine Color Dark Yellow Urine Odor Uretheral (Salazar) Normal Exam: General: Somnolent, no acute Distress Eyes/N/T: EOMI, pupils equal and round Head/Neck: neck supple, CV: RRR, No murmurs, Pulm: Clear b/l, no wheezing/rhonchi/rales Abd: soft, nontender, +BS x4 Ext: no clubbing/cyanosis. 2+ b/l LE edema chronic Neuro: Somnolent, awakens to answer questions but falls asleep quickly no focal deficits, moves all extremities, Skin: warm/dry, venous stasis changes to lower extremities Medical - PN: Obj Da - Labs CBC & Chem 7: 10/23/18 04:00 10/23/18 04:00 Labs: Abnormal Lab Results 10/23/18 10/22/18 10/22/18 04:00 04:00 04:00 WBC 3.5 L RBC 3.51 L Hgb 10.4 L Hct 31.2 L POC Hct RDW 18.3 H MPV 10.7 H Gran % Lymph % (Auto) [place] % (Auto) 13.9 H Lymph # (Auto) 0.7 L Monocytes % (Manual) RBC Morphology Anisocytosis POC Sodium Sodium 126 L POC Potassium Potassium 5.8 H Chloride 94 L Carbon Dioxide 18 L POC Total CO2 POC BUN BUN 28 H Creatinine 1.2 H Magnesium 1.5 L Lactate Dehydrogenase 330 H C-Reactive Protein Cortisol AM Sample 4.9 L Ur Leukocyte Esterase 10/22/18 10/21/18 10/21/18 04:00 18:27 13:53 WBC 3.7 L RBC 3.91 L Hgb 11.5 L Hct 34.6 L POC Hct 34.0 L RDW 19.3 H MPV 10.5 H Gran % 91.2 H Lymph % (Auto) 6.9 L [place] % (Auto) Lymph # (Auto) 0.3 L Monocytes % (Manual) RBC Morphology Anisocytosis POC Sodium 129 L Sodium POC Potassium 5.4 H Potassium Chloride Carbon Dioxide POC Total CO2 21 L POC BUN 25 H BUN Creatinine Magnesium Lactate Dehydrogenase C-Reactive Protein Cortisol AM Sample Ur Leukocyte Esterase 25 A 10/21/18 10/21/18 10/21/18 13:23 13:23 13:23 WBC RBC 3.73 L Hgb 11.1 L Hct 32.7 L POC Hct RDW 18.8 H MPV Gran % Lymph % (Auto) 13.9 L [place] % (Auto) 13.6 H Lymph # (Auto) 0.7 L Monocytes % (Manual) 15 H RBC Morphology Abnorm A Anisocytosis 1+ A POC Sodium Sodium 126 L POC Potassium Potassium 6.3 H* Chloride 95 L Carbon Dioxide 17 L POC Total CO2 POC BUN BUN 30 H Creatinine 1.3 H Magnesium Lactate Dehydrogenase C-Reactive Protein 3.4 H Cortisol AM Sample Ur Leukocyte Esterase Meds: Medications Acetaminophen (Tylenol) 500 mg PO Q6HP PRN PRN Reason: PAIN/FEVER > 101 Hydrocodone Bitart/Acetaminophen ([place] 10/325mg) 1 tab PO Q4HP PRN PRN Reason: Pain Last Admin: 10/22/18 21:30 Dose: 1 tab Documented by: Albuterol Sulfate (Ventolin) 0 puff IH PRN PRN PRN Reason: Shortness Of Breath Albuterol/Ipratropium (Duoneb) 3 ml NEB Q4HP PRN PRN Reason: Shortness Of Breath Aspirin (Aspirin) 81 mg PO DAILY [facility] Cyanocobalamin (Vitamin B-12) 1,000 mcg PO DAILY [facility] Docusate Sodium (Colace) 100 mg PO BID [facility] Last Admin: 10/22/18 20:07 Dose: 100 mg Documented by: Enoxaparin Sodium (Lovenox) 40 mg SQ DAILY [facility] Last Admin: 10/22/18 09:03 Dose: 40 mg Documented by: Ergocalciferol (Drisdol) 50,000 unit PO Carvalho@0900 [facility] Famotidine (Pepcid) 20 mg PO HS [facility] Last Admin: 10/22/18 20:06 Dose: 20 mg Documented by: Ferrous Sulfate (Ferrous Sulfate) 325 mg PO BIDCC [facility] Last Admin: 10/22/18 17:45 Dose: 325 mg Documented by: Furosemide (Lasix) 40 mg PO DAILY [facility] Last Admin: 10/22/18 11:19 Dose: 40 mg Documented by: Gabapentin (Neurontin) 200 mg PO QHS [facility] Last Admin: 10/22/18 20:06 Dose: 200 mg Documented by: Magnesium Sulfate (Magnesium Sulfate) 2 gm in 50 mls @ 50 mls/hr IV UD PRN PRN Reason: Magnesium </= 1.6 Piperacillin Sod/Tazobactam (Sod 2.25 gm/ Dextrose) 50 mls @ 100 mls/hr IV Q6H [facility]; Protocol Last Infusion: 10/23/18 06:35 Dose: Infused Documented by: Lactulose (Cephulac) 10 gm PO DAILYP PRN PRN Reason: Constipation Last Admin: 10/22/18 17:46 Dose: 10 gm Documented by: Lidocaine (Lidoderm) 1 patch TOPICAL DAILY@1000 [facility] Last Admin: 05/16/19 08:58 Dose: 1 patch Documented by: Methocarbamol (Robaxin) 750 mg PO Q6HP PRN PRN Reason: Pain Last Admin: 10/22/18 12:59 Dose: 750 mg Documented by: Morphine Sulfate (Morphine) 2 - 4 mg IV Q3HP PRN PRN Reason: PAIN LEVEL > 6 Last Admin: 10/22/18 23:27 Dose: 2 mg Documented by: Ondansetron HCl (Zofran) 4 mg IV Q4HP PRN PRN Reason: Nausea And Vomiting Polyethylene Glycol (Miralax) 17 gm PO DAILYP PRN PRN Reason: Constipation Last Admin: 10/22/18 13:01 Dose: 17 gm Documented by: Potassium Chloride (Kdur) 40 meq PO UD PRN PRN Reason: Potssium is 3-3.5 Potassium Chloride (Kdur) 40 meq PO UD PRN PRN Reason: Potassium < 3 Senna (Senokot) 2 tab PO HSP PRN PRN Reason: Constipation Sodium Chloride (Saline Flush) 10 ml IV Q8 [facility] Last Admin: 10/23/18 06:35 Dose: 10 ml Documented by: Sodium Chloride (Sodium Chloride) 1 gm PO TID [facility] Last Admin: 10/22/18 20:11 Dose: 1 gm Documented by: Medical - PN: A/P - Time Spent With Patient Total time spent is greater than 50% in coordination of care (as documented) at patient's floor/unit and/or counseling patient: - Narrative A/P Narrative: A: *AMS (decreased LOC): Multifactorial including sedating medications / metabolic / infectious / poor sleep -She has been on gabapentin and Robaxin and [place] -CT brain with mild atrophy and chronic ischemic white matter dz -mentation waxes/wanes *Hyponatremia (h/o same): suspect siadh -Improved *Hyperkalemia: Secondary to Aldactone in the setting of CKD -Resolved *Chronic low back pain and radiculopathy and significant right hip OA: Has had epidural in the past with success. Follows with pain management *metabolic acidosis, non-gap; not adrenal, good response to acth stim tet. -REsolved *UTI (E. coli): *GPB in 2/4 bottles blood from same draw: probable contaminant, repeat BC pendi ng *PVD, with stent to the leg by Dr. Jones: *CKD III (baseline ~1.3): follows with Dr. Dubois - *MAXINE & B12 deficiency: *Generalized weakness/deconditioning/debility: *GERD: *Tobacco abuse: *Chronic peripheral edema *Leukopenia: noted during [facility] admission *h/o NSCLC: *Constipation: P: -Monitor electrolytes, fluid restrict, salt tabs -Pain control with heating pad/muscle relaxer/narcotics but with caution. stopped -consulted Dr. Aguayo, recommended MRI and attempted but patient uncooperative. -Aldactone stopped, hold lasix for now -zosyn, pending final blood C&S -PT/OT -Smoking cessation counseling -bowel regimen -ppx: lovenox/home ppi Medical - PN: Qual - Stroke Symptom Onset Unknown: No - VTE Deep Vein Thrombosis/Pulmonary Embolism Present on Admission: No
[2018-10-23 07:34] LABS: ALT/SGPT 14 U/l (0-40); Albumin 3.8 gm/dL (3.2-5.2); Albumin/Globulin Ratio 1.3 (1.0-2.3); Alkaline Phosphatase 72 U/L (39-117); Bilirubin,Direct < 0.2 mg/dL (0.0-0.3); Blood Urea Nitrogen 32 mg/dl (8-23); Gamma Glutamyl Transpeptidase 27 U/L (5-36); Uric Acid 6.9 mg/dL (2.5-8.0)
[2018-10-23] MEDS: FERROUS SULFATE 325 MG TABLET PO SCH ×2 (09:52→17:29)
[2018-10-23] MEDS: DOCUSATE SODIUM 100 MG CAPSULE PO SCH ×2 (09:52→20:15)
[2018-10-23] MEDS: CYANOCOBALAMIN (VITAMIN B-12) 500 MCG TABLET PO SCH (09:53)
[2018-10-23] MEDS: SODIUM CHLORIDE 1 GM TABLET PO SCH ×3 (09:53→20:35)
[2018-10-23] MEDS: ACETAMINOPHEN 500 MG TABLET PO PRN (09:54)
[2018-10-23] MEDS: LIDOCAINE PATCH TOPICAL SCH (09:55)
[2018-10-23] MEDS: ENOXAPARIN 40 MG/0.4 ML SYRINGE SQ SCH (09:56)
[2018-10-23] MEDS: ASPIRIN 81 MG TAB.CHEW PO SCH (09:56)
[2018-10-23] MEDS ORDERED: NALOXONE HCL 0.4 MG/ML VIAL IV ONE ×2 (09:57→09:58)
[2018-10-23] MEDS ORDERED: HYDROCORTISONE SOD SUCC 100 MG VIAL IV ONE (10:00)
--- NOTE | 2018-10-23 11:21 | Consultation ---
DATE OF CONSULTATION: 10/22/2018 ATTENDING PHYSICIAN: Jose Hays M.D. PRIMARY CARE PHYSICIAN: Jordan Coker D.O. CONSULTING PHYSICIAN: Brijesh Aguayo D.O. REASON FOR CONSULTATION: I was called by Dr. Hays yesterday to come and see patient who was admitted to the hospital a few days back secondary to intermittent falls secondary to oversedation. The patient apparently also was complaining of weakness in her legs. The patient was admitted and was being worked up to determine the cause of this oversedation as well as the pain. The patient's history that I am aware of, as I was only able to get this by looking through records, was she was actually seen in the pain clinic on 04/10/[address] Briones. Her complaint was of right low back and leg pain at that time, going to the mid-femur. The patient had undergone a series of three epidural steroid injections by Dr. Jones in the previous few months and apparently stated that this was helpful for her back pain and her leg pain. At that time she was utilizing OxyContin 10 mg twice daily as well as hydrocodone/acetaminophen 7.5/325 mg for breakthrough pain, I think a maximum of three to four daily. The patient also had recently undergone some type of stenting in the left leg and was on Plavix at that time, but after talking to nurse and attending physician it appears as if she was not on the Plavix when she was admitted. Again, main complaint was that of back pain and right leg pain, but the biggest issue was this oversedation and it even almost sounded like it was intermittent. The patient was on, I believe, 600 mg of gabapentin, I think b.i.d., before admission into the hospital and was also taking Robaxin 750 mg, I believe, uncertain of how frequently. When I had talked to Dr. Hays when she was admitted, she was found to have gram negative bacilli in her urine. She was also found to have 1/4 bottles for positive, I believe, gram-negative bacilli in her blood, but he stated that she did not appear to be septic. The patient presently is on antibiotics. The patient also was admitted with some hyponatremia as well. I was consulted specifically to try to determine what potentially could be done for her low back pain and right leg pain. ALLERGIES: No known drug allergies. MEDICATIONS: As stated above in regards to her pain medication. Also history of: 1. Lorazepam 0.5 mg. 2. Spironolactone 25 mg. 3. Ranitidine hydrochloride 150 mg. PAST MEDICAL HISTORY: Positive for lung cancer, hyponatremia, anxiety, history of tobacco use. PAST SURGICAL HISTORY: Positive for stent in the left leg, tubal ligation, chemo and radiation for lung cancer, and thoracotomy. The patient also has a scar on her right leg and looking at her records appears as if she has had a right hip replacement, and she had been told that she had severe degenerative joint disease of the right hip. In the records that I have from 04/10/2018, she was complaining of degenerative joint disease of the right hip, so the question is whether this surgical procedure was done after that visit in the pain clinic with Dr. Briones. FAMILY HISTORY: Negative for chronic problems. SOCIAL HISTORY: The patient apparently was in some type of rehab facility next to the hospital. Education: Some college. Marital status: . Disability/Workman's Comp: No. Tobacco use for 50 years and quit in 2008. Alcohol: No. Illegal drugs: No. PHYSICAL EXAMINATION: NOTE: It should be noted that it was very difficult to examine the patient as she was very sedated. I could stimulate her and get her to respond, but I was not convinced that the responses were consistent or appropriate. NECK: Supple. No anterior, posterior lymphadenopathy. HEART: Regular rate. No ectopy. LUNGS: Clear to auscultation. No rales, rhonchi or wheezing. ABDOMEN: Soft, nontender to palpation. No organomegaly, no mass, no guarding, no rigidity. BACK: The patient does have some tenderness over her midline of her lower lumbar spine but is not significant but it does appear to be tender. She also appears to be tender over the right sacrum, SI joint area, and down into the buttocks area with tenderness also noted over the right greater trochanteric bursal region. Also with pressure on the left, she seemed to intermittently have pain with palpation there as well. Straight leg raise was difficult to assess. It appeared to be negative on the left, was unable to straighten her leg on the right to really determine straight leg test, but as straight as I could get it still could not determine whether it was positive. I really did not notice any clonus with any of the leg movements, and ASIS distraction was unremarkable with compression over the pelvis bilaterally. There was also no tenderness. EXTREMITIES: Very difficult to manipulate patient's right hip. Certainly internal rotation seemed to cause the patient to have increased pain in the right hip. External rotation was tolerated better. All of these were moderately restricted secondary to her guarding. Flexion to approximately 80 to 90 degrees did not appear to cause significant discomfort, but overall the internal rotation did seem to cause significant pain in the right hip. Unremarkable essentially on the left. Again, unable to straighten the right knee secondary to guarding. When I asked the patient to straighten her left knee, she stated that she could not and then stated, ''It keeps company with my right leg.'' The patient, again, had significant tenderness over the right greater trochanteric bursal region. We dopplered DP and posterior tibial pulses bilaterally, and they were definitely present. NEUROLOGIC: Really unable to gain good patellar deep tendon reflex on the right. It did appear to be present on the left. Unable to get Achilles bilaterally. I did not note specific weakness in the lower extremity, but again very difficult to assess. For sensory I used pin prick and really could not determine any good pattern of dermatomal loss. She did appear to have decreased sensation over the lateral aspect of her right leg which would be L5, but again it was real hit and miss in regards to getting appropriate response. INTEGUMENT: Unremarkable. IMPRESSION: 1. Axial low back pain secondary to facet arthropathy, degenerative disc disease, and spondylosis. Cannot rule out SI. Also cannot rule out potential of compression fracture or even some type of sacral insufficiency fracture. 2. Right greater trochanteric bursitis is possible, and patient has history of right hip pain but is status post right hip arthroplasty. Uncertain of when this was done. 3. History of central stenosis with most recent CT written as moderate central stenosis at L3-4 and L4-5. The previous CT that was done in 02/2018 was read as severe central stenosis at L3-4 and L4-5, and she was noted to have some neural foraminal narrowing moderately at the L3-4 and L4-5 level. The central stenosis was multifactorial. Difficult to know whether patient had neurogenic claudication symptoms as could not get that information from her today. 4. Intermittent oversedation with cause uncertain. Question whether this is secondary to medication or physiologic. 5. History of polypharmacy with a history of renal insufficiency. PLAN: It is really difficult to discern where patient is hurting the most secondary to her being a poor historian and kind of in and out of good consciousness. I had suggested that we pursue an MRI, and they attempted to get this last night and was unable to obtain it secondary to her movement. Another study that could be considered at some point is a bone scan to determine if there is any increased uptake in her pelvis or sacrum or even in one of her vertebral bodies. I do think there likely is a component of lumbar radiculopathy with this patient, but unable to do any type of injection secondary to bladder infection and patient being on antibiotics with even potentially systemic spread of infection. Certainly when this is cleared up, trialing her with epidural steroid injection would be reasonable at that point but not until the infection is resolved. At some point, too, her right greater trochanteric bursal area could also be injected. In regards to the oversedation, certainly patient also has what sounds like chronic renal insufficiency, and certainly with her using gabapentin this could accumulate over time and increase half-life with renal insufficiency, and a significant amount of this is excreted unchanged through the kidneys. The patient was decreased from 600 mg of Neurontin, I believe b.i.d., to 200 mg. I would suggest stopping the Neurontin completely and seeing with tincture of time if this will allow her to not have these periods of sedation. Also, at some point may consider if she is still taking the methocarbamol, taking this away as this also has a potential of sedation. Patient's ABGs certainly do not appear that patient should be over-narcotized secondary to the CO2 being within normal limits. However, if there is still concern that she is, could consider titrating a little Narcan on and see if this does wake her up. Certainly if she does not wake up, this tells us that it is not the opioid that is causing the mentation issue. In summary, I really think there is very little that I can do in regards to interventions until patient's infection is completely ruled out or resolved. Also, until patient's mentation is better, it is very difficult to get a good history, but certainly pain does appear to be coming from back, sacrum, pelvis area versus hip. I do think an MRI would still be appropriate, but also bone scan at some point may be appropriate if unable to find the area of pain. Even a CT of the pelvis might be appropriate at some point. MRI of the lumbar spine or even of the pelvis might be reasonable as well. Also, further evaluation of the right hip could be considered if we are unable to find any other etiology. Certainly if there are any more questions, I can be contacted, but at this time I really cannot provide any interventions. Hopefully, when patient becomes more reliable and awake, more information could be obtained. JOCELYNE:ortega Job ID: [id number] Doc ID: [id number] Brijesh Aguayo DO
--- NOTE | 2018-10-23 18:16 | Cat Scan Report ---
CLINICAL INFORMATION: Right hip pain and abdominal pain COMPARISON: None. TECHNIQUE: 0.625 mm helical slices were obtained from the mid heart through the subtrochanteric regions. Following reconstruction, 2.5 mm sagittal, coronal and axial reformatted images were processed and reviewed at bone and soft tissue windows.The exam was performed using radiation dose optimization techniques including, but not limited to, automated exposure control, adjustment of the mA and/or kV according to patient size and use of iterative reconstruction technique. FINDINGS: Lung bases show no abnormality - no effusions. Visualized heart is grossly normal. Images through the abdomen show the noncontrasted gallbladder and bile ducts, liver, both kidneys, adrenal glands, spleen, pancreas and aorta to be normal. No free air, free fluid or adenopathy. Stomach, small and large bowel are unremarkable with the exception of sigmoid diverticulosis. Images of the pelvis show Salazar catheter properly positioned in the urinary bladder. The region of the uterus obscured by beam hardening artifact from right hip prostheses. No gross abnormality.Bone windows show right total hip prostheses is anatomically aligned without loosening or infection. The right thigh is hyperflexed. Moderate degenerative changes noted in the left hip and mild degenerative change in both SI joints. No osseous abnormalities. Degenerative change lower lumbar spine IMPRESSION: 1. Right thighs hyperflexed. Right total hip prostheses is anatomically aligned without loosening or infection. Moderate degenerative change in the left hip and mild degenerative change in both SI joint. 2. No abnormality seen throughout the abdomen or pelvis Interpreted and Authenticated by: Jordan Covington 10/23/18
[2018-10-23] MEDS: FAMOTIDINE 20 MG TABLET PO SCH (20:15)
[2018-10-23] MEDS: HYDROcodone/APAP 10/325MG TABLET PO PRN (20:15)
[2018-10-24] MEDS: PIPERACILLIN SODIUM/TAZOBACTAM 2.25 GM in DEXTROSE 5% IN WATER 50 ML IV SCH ×5 (00:23→23:28)
[2018-10-24] MEDS: 0.9 % SODIUM CHLORIDE 10 ML SYRINGE IV SCH ×5 (00:24→20:47)
[2018-10-24] MEDS: ACETAMINOPHEN 500 MG TABLET PO PRN (00:37)
[2018-10-24 05:44] LABS: Creatine Kinase 280 IU/L (24-170)
--- NOTE | 2018-10-24 07:52 | Internal Med Progress Note ---
Medical - PN: Subj Patient information: Note initiated : 10/24/18 at 7:44 am Service Date, if different from initiated Date: [] Patient: Nany Lara 73 y/o F admitted on 10/21/18 for Altered Mental Status. Chief Complaint: [] Interval history: Ms. Lara is a 73 year old F Who presents the ED from retirement facility with decreased level of consciousness /weakness. While she was here she also was noted to complain of her chronic back pain with radiculopathy, but this was not the primary reason why she was sent in. Patient was at [facility] weeks ago for hyperkalemia. Her Aldactone was stopped. However it still on her medication list does sound like she is been getting it at the nursing facility. He was found to have calcium 6.3 when she came in and a sodium of 126. She reports poor oral intake cannel not much else other than coffee. She had a CT brain which is unremarkable EKG showed no changes from previous she had a lumbar CT which does show degenerative joint and disc protrusions no acute fractures. I do not have all labs but apparently from the ED note her creatinine is 1.3 and it was recently 1.5. She is on [place] as well as Robaxin and gabapentin. She has received an epidural injection by Dr. Jones in the recent past which could improvement in radiculopathy. It sounds like she sees [facility] pain [facility] as well. She denies any complaints other than feeling weak. She is drowsy in the ED after narcotic medications for pain. She is sitting up in bed does not complain of any pain at this time. Family member states that when she is laying on her back is when she is in significant amount of pain but when she sitting up she is comfortable. She did receive IV fluids with Lasix and calcium gluconate and a repeat potassium which was 5.4. 10/22 Patient slept all right last night. Per nurse morphine seems to make her quite drowsy. I saw this morning she was awake and answering questions. She states her pain starts in the right back hip region as described as a shooting pain down the back of her leg to her right knee. Family is present. Denies any other complaints. Urine culture growing gram-negative bacillus and 104 blood draws growing gram-positive bacillus. Cortisol level low and ACTH stimulation test pending. Family she sees Dr. Benavides and will contact him regarding eventual possible epidural injection and further recommendations in the meantime. 10/23 Poor sleep last night. Lethargic this morning. Sitting in chair and nodding off. Arousable but then nods off. Unable to get MRI yesterday patient uncooperative. CT with lumbar DJD and right hip osteoarthritis. Electrolytes improved. ABG okay with no CO2 retention.. 10/24 Per lieutenant shift supervisor patient appeared to be more comfortable. Had several bowel movements now as was constipated earlier. Expressed to nurse this morning that she did not have any pain but by the time when she started having pain again. Stating she wanted to go home. I explained her that we are want to work on her pain as well as her infection. Review of Systems: denies headache/fever/chills/nausea/vomiting/chest or abdominal pain/cough/dyspnea. Otherwise see above. - Constitutional Vitals: Vital Signs Temp Pulse Resp BP Pulse Ox 98.4 F 88 17 124/54 94 10/24/18 04:01 10/22/18 20:00 10/24/18 04:01 10/24/18 04:01 10/24/18 04:01 Period Temp Pulse Resp BP Sys/Bell Pulse Ox Last 24 Hr 98.4 F-99.9 F 12-18 102-136/45-67 94-97 Intake and Output 10/23/18 10/24/18 10/24/18 21:59 05:59 13:59 Intake Total 170 410 Output Total 350 400 Balance -180 10 Weight 60.192 kg Intake & Output: Intake & Output 10/23/18 10/24/18 10/24/18 21:59 05:59 13:59 Intake Total 170 410 Output Total 350 400 Balance -180 10 Weight 60.192 kg Intake: IV 50 50 Zosyn 2.25 gm In Dextrose 5% in 50 50 Water 50 ml @ 100 mls/hr IV Q6H [facility] Rx#:[id number] Oral 120 360 Output: Urine Catheter Amount 350 Void Amount 400 Other: Meal Lunch Percent of Meal Consumed 25% Feeding Ability Total Assistance Urine Appearance Clear Clear Urine Color Dark Yellow Dark Yellow Stool Size Small Stool Color Brown Green Stool Consistency Loose # Bowel Movements 1 Exam: General: awake, alert Eyes/N/T: EOMI, Head/Neck: neck supple, CV: RRR, No murmurs, Pulm: Clear b/l, no wheezing/rhonchi/rales Abd: soft, nontender, +BS x4 Ext: no clubbing/cyanosis. 2+ b/l LE edema chronic Neuro: awake, answers questions appropriately, no focal deficits, moves all extremities, Skin: warm/dry, venous stasis changes to lower extremities Medical - PN: Obj Da - Labs CBC & Chem 7: 10/24/18 04:15 10/24/18 04:15 Labs: Abnormal Lab Results 10/24/18 10/23/18 10/23/18 04:15 04:00 04:00 WBC RBC Hgb Hct POC Hct RDW MPV Gran % Lymph % (Auto) [place] % (Auto) Lymph # (Auto) Monocytes % (Manual) RBC Morphology Anisocytosis POC Sodium Sodium 130 L POC Potassium Potassium Chloride 94 L Carbon Dioxide POC Total CO2 POC BUN BUN 32 H Creatinine 1.4 H Magnesium Lactate Dehydrogenase 283 H Total Creatine Kinase 280 H 394 H C-Reactive Protein Cortisol AM Sample Ur Leukocyte Esterase 10/23/18 10/22/18 10/22/18 04:00 04:00 04:00 WBC 3.5 L RBC 3.51 L Hgb 10.4 L Hct 31.2 L POC Hct RDW 18.3 H MPV 10.7 H Gran % Lymph % (Auto) [place] % (Auto) 13.9 H Lymph # (Auto) 0.7 L Monocytes % (Manual) RBC Morphology Anisocytosis POC Sodium Sodium 126 L POC Potassium Potassium 5.8 H Chloride 94 L Carbon Dioxide 18 L POC Total CO2 POC BUN BUN 28 H Creatinine 1.2 H Magnesium 1.5 L Lactate Dehydrogenase 330 H Total Creatine Kinase C-Reactive Protein Cortisol AM Sample 4.9 L Ur Leukocyte Esterase 10/22/18 10/21/18 10/21/18 04:00 18:27 13:53 WBC 3.7 L RBC 3.91 L Hgb 11.5 L Hct 34.6 L POC Hct 34.0 L RDW 19.3 H MPV 10.5 H Gran % 91.2 H Lymph % (Auto) 6.9 L [place] % (Auto) Lymph # (Auto) 0.3 L Monocytes % (Manual) RBC Morphology Anisocytosis POC Sodium 129 L Sodium POC Potassium 5.4 H Potassium Chloride Carbon Dioxide POC Total CO2 21 L POC BUN 25 H BUN Creatinine Magnesium Lactate Dehydrogenase Total Creatine Kinase C-Reactive Protein Cortisol AM Sample Ur Leukocyte Esterase 25 A 10/21/18 10/21/18 10/21/18 13:23 13:23 13:23 WBC RBC 3.73 L Hgb 11.1 L Hct 32.7 L POC Hct RDW 18.8 H MPV Gran % Lymph % (Auto) 13.9 L [place] % (Auto) 13.6 H Lymph # (Auto) 0.7 L Monocytes % (Manual) 15 H RBC Morphology Abnorm A Anisocytosis 1+ A POC Sodium Sodium 126 L POC Potassium Potassium 6.3 H* Chloride 95 L Carbon Dioxide 17 L POC Total CO2 POC BUN BUN 30 H Creatinine 1.3 H Magnesium Lactate Dehydrogenase Total Creatine Kinase C-Reactive Protein 3.4 H Cortisol AM Sample Ur Leukocyte Esterase Meds: Medications Acetaminophen (Tylenol) 500 mg PO Q6HP PRN PRN Reason: PAIN/FEVER > 101 Last Admin: 10/24/18 00:37 Dose: 500 mg Documented by: Hydrocodone Bitart/Acetaminophen ([place] 10/325mg) 1 tab PO Q4HP PRN PRN Reason: Pain Last Admin: 10/23/18 20:15 Dose: 1 tab Documented by: Albuterol Sulfate (Ventolin) 0 puff IH PRN PRN PRN Reason: Shortness Of Breath Albuterol/Ipratropium (Duoneb) 3 ml NEB Q4HP PRN PRN Reason: Shortness Of Breath Aspirin (Aspirin) 81 mg PO DAILY [facility] Last Admin: 10/23/18 09:56 Dose: 81 mg Documented by: Cyanocobalamin (Vitamin B-12) 1,000 mcg PO DAILY [facility] Last Admin: 10/23/18 09:53 Dose: 1,000 mcg Documented by: Docusate Sodium (Colace) 100 mg PO BID [facility] Last Admin: 10/23/18 20:15 Dose: 100 mg Documented by: Enoxaparin Sodium (Lovenox) 40 mg SQ DAILY [facility] Last Admin: 10/23/18 09:56 Dose: 40 mg Documented by: Ergocalciferol (Drisdol) 50,000 unit PO Carvalho@0900 [facility] Famotidine (Pepcid) 20 mg PO HS [facility] Last Admin: 10/23/18 20:15 Dose: 20 mg Documented by: Ferrous Sulfate (Ferrous Sulfate) [facility] Last Admin: 10/23/18 17:29 Dose: 325 mg Documented by: Magnesium Sulfate (Magnesium Sulfate) 2 gm in 50 mls @ 50 mls/hr IV UD PRN PRN Reason: Magnesium </= 1.6 Piperacillin Sod/Tazobactam (Sod 2.25 gm/ Dextrose) 50 mls @ 100 mls/hr IV Q6H [facility]; Protocol Last Admin: 10/24/18 05:30 Dose: 100 mls/hr Documented by: Lactulose (Cephulac) 10 gm PO DAILYP PRN PRN Reason: Constipation Last Admin: 10/22/18 17:46 Dose: 10 gm Documented by: Lidocaine (Lidoderm) 1 patch TOPICAL DAILY@1000 [place] Last Admin: 10/23/18 09:55 Dose: 1 patch Documented by: Methocarbamol (Robaxin) 750 mg PO Q6HP PRN PRN Reason: Pain Last Admin: 10/22/18 12:59 Dose: 750 mg Documented by: Morphine Sulfate (Morphine) 2 - 4 mg IV Q3HP PRN PRN Reason: PAIN LEVEL > 6 Last Admin: 10/22/18 23:27 Dose: 2 mg Documented by: Ondansetron HCl (Zofran) 4 mg IV Q4HP PRN PRN Reason: Nausea And Vomiting Polyethylene Glycol (Miralax) 17 gm PO DAILYP PRN PRN Reason: Constipation Last Admin: 10/22/18 13:01 Dose: 17 gm Documented by: Potassium Chloride (Kdur) 40 meq PO UD PRN PRN Reason: Potssium is 3-3.5 Potassium Chloride (Kdur) 40 meq PO UD PRN PRN Reason: Potassium < 3 Senna (Senokot) 2 tab PO HSP PRN PRN Reason: Constipation Sodium Chloride (Saline Flush) 10 ml IV Q8 [facility] Last Admin: 10/24/18 05:30 Dose: 10 ml Documented by: Sodium Chloride (Sodium Chloride) 1 gm PO TID [facility] Last Admin: 10/23/18 20:35 Dose: 1 gm Documented by: Medical - PN: A/P - Time Spent With Patient Total time spent is greater than 50% in coordination of care (as documented) at patient's floor/unit and/or counseling patient: - Narrative A/P Narrative: A: *AMS (decreased LOC): Multifactorial including sedating medications / metabolic / infectious / poor sleep. IMproved -She has been on gabapentin and Robaxin and [place] -CT brain with mild atrophy and chronic ischemic white matter dz; no co2 retention, ammonia wnl -mentation waxes/wanes -likely take a while for meds to clear, especially orlin -Improved last night *Hyponatremia (h/o same) likely SIAHD: -REsolved *Hyperkalemia: Secondary to Aldactone in the setting of CKD -Resolved *Chronic LBP w/radiculopathy and Right hip pain: Has had epidural in the past with success. Follows with pain management -CT showed anatomical alignment without loosening or infection of hip joint *metabolic acidosis, non-gap; not adrenal, good response to acth stim tet. -REsolved *UTI (E. coli): *Bacteremia (Clostridium perfringens / bottles): CT ab/pel no found source of entry *PVD, with stent to the leg by Dr. Jones: *CKD III (baseline ~1.3): follows with Dr. Dubois - *MAXINE & B12 deficiency: stable *Generalized weakness/deconditioning/debility: *GERD: *Tobacco abuse: *Chronic peripheral edema *Leukopenia: noted during [facility] admission. stable *h/o NSCLC: *Constipation: BM last night *Anxiety: *Pt had right MC beginning of this year for severe OA: has had decline since P: -Monitor electrolytes, fluid restrict, salt tabs -Pain control with heating pad/muscle relaxer/narcotics but with caution. -consulted Dr. Aguayo, recommended MRI and attempted but patient uncooperative. Unable to perform any injections until infections appropriately treated -Aldactone stopped, hold lasix for now -zosyn, pending final and repeat blood C&S -case discussed with ID, pending repeat BC -PT/OT -Smoking cessation counseling -bowel regimen -ppx: lovenox/home ppi Medical - PN: Qual - Stroke Symptom Onset Unknown: No - VTE Deep Vein Thrombosis/Pulmonary Embolism Present on Admission: No
[2018-10-24] MEDS: FERROUS SULFATE 325 MG TABLET PO SCH ×2 (09:02→18:02)
[2018-10-24] MEDS: ASPIRIN 81 MG TAB.CHEW PO SCH (09:02)
[2018-10-24] MEDS: DOCUSATE SODIUM 100 MG CAPSULE PO SCH ×2 (09:02→20:46)
[2018-10-24] MEDS: ENOXAPARIN 40 MG/0.4 ML SYRINGE SQ SCH (09:03)
[2018-10-24] MEDS: LIDOCAINE PATCH TOPICAL SCH (09:03)
[2018-10-24] MEDS: CYANOCOBALAMIN (VITAMIN B-12) 500 MCG TABLET PO SCH (09:03)
[2018-10-24] MEDS: SODIUM CHLORIDE 1 GM TABLET PO SCH ×2 (09:03→20:46)
[2018-10-24 09:04] LABS: Mean Cell Volume 89.2 fL (80.0-100.0); Platelet Count 204 K/mcL (140-440); RBC 3.41 M/mcL (4.00-5.20); Red Cell Distribution Width 19.2 % (11.5-14.5)
[2018-10-24 09:10] LABS: ALT/SGPT 14 U/l (0-40); Albumin 3.5 gm/dL (3.2-5.2); Albumin/Globulin Ratio 1.3 (1.0-2.3); Alkaline Phosphatase 59 U/L (39-117); Bilirubin,Direct < 0.2 mg/dL (0.0-0.3); Blood Urea Nitrogen 29 mg/dl (8-23); Gamma Glutamyl Transpeptidase 27 U/L (5-36); Uric Acid 6.4 mg/dL (2.5-8.0)
[2018-10-24 09:25] LABS: Anisocytosis 1+ (NONE SEEN); Lymphocytes % 41 % (15-49); Monocytes % (Manual) 9 % (1-12); Platelet Estimate NORMAL (NORMAL); RBC Morphology ABNORM (NORMAL); Segmented Neutrophils % 50 % (38-78)
[2018-10-24] MEDS ORDERED: hydrOXYzine 25 MG TABLET PO PRN (09:53)
[2018-10-24] MEDS ORDERED: hydrOXYzine 25 MG TABLET PO ONE (09:53)
[2018-10-24] MEDS ORDERED: hydrOXYzine 50 MG/ML VIAL IM PRN (10:00)
[2018-10-24] MEDS: HYDROcodone/APAP 10/325MG TABLET PO PRN ×2 (17:14→21:35)
[2018-10-24] MEDS: METHOCARBAMOL 750 MG TABLET PO PRN (19:56)
[2018-10-24] MEDS: FAMOTIDINE 20 MG TABLET PO SCH (20:46)
[2018-10-25] MEDS: HYDROcodone/APAP 10/325MG TABLET PO PRN ×5 (03:14→21:52)
[2018-10-25] MEDS: PIPERACILLIN SODIUM/TAZOBACTAM 2.25 GM in DEXTROSE 5% IN WATER 50 ML IV SCH ×3 (05:23→17:42)
[2018-10-25] MEDS: 0.9 % SODIUM CHLORIDE 10 ML SYRINGE IV SCH ×3 (05:24→21:55)
[2018-10-25 05:36] LABS: Blood Urea Nitrogen 21 mg/dl (8-23)
--- NOTE | 2018-10-25 07:57 | Internal Med Progress Note ---
Medical - PN: Subj Patient information: Note initiated : 10/25/18 at 7:54 am Service Date, if different from initiated Date: [] Patient: Nany Lara 73 y/o F admitted on 10/21/18 for Altered Mental Status. Chief Complaint: [] Interval history: Ms. Lara is a 73 year old F Who presents the ED from [facility] facility with decreased level of consciousness /weakness. While she was here she also was noted to complain of her chronic back pain with radiculopathy, but this was not the primary reason why she was sent in. Patient was at [facility] 3 weeks ago for hyperkalemia. Her Aldactone was stopped. However it still on her medication list does sound like she is been getting it at the nursing facility. He was found to have calcium 6.3 when she came in and a sodium of 126. She reports poor oral intake cannel not much else other than coffee. She had a CT brain which is unremarkable EKG showed no changes from previous she had a lumbar CT which does show degenerative joint and disc protrusions no acute fractures. I do not have all labs but apparently from the ED note her creatinine is 1.3 and it was recently 1.5. She is on [place] as well as Robaxin and gabapentin. She has received an epidural injection by Dr. Jones in the recent past which could improvement in radiculopathy. It sounds like she sees [facility] pain management as well. She denies any complaints other than feeling weak. She is drowsy in the ED after narcotic medications for pain. She is sitting up in bed does not complain of any pain at this time. Family member states that when she is laying on her back is when she is in significant amount of pain but when she sitting up she is comfortable. She did receive IV fluids with Lasix and calcium gluconate and a repeat potassium which was 5.4. 10/22 Patient slept all right last night. Per nurse morphine seems to make her quite drowsy. I saw this morning she was awake and answering questions. She states her pain starts in the right back hip region as described as a shooting pain down the back of her leg to her right knee. Family is present. Denies any other complaints. Urine culture growing gram-negative bacillus and 104 blood draws growing gram-positive bacillus. Cortisol level low and ACTH stimulation test pending. Family she sees Dr. Benavides and will contact him regarding eventual possible epidural injection and further recommendations in the meantime. 10/23 Poor sleep last night. Lethargic this morning. Sitting in chair and nodding off. Arousable but then nods off. Unable to get MRI yesterday patient uncooperative. CT with lumbar DJD and right hip osteoarthritis. Electrolytes improved. ABG okay with no CO2 retention.. 10/24 Per night patrol inspector patient appeared to be more comfortable. Had several bowel movements now as was constipated earlier. Expressed to nurse this morning that she did not have any pain but by the time when she started having pain again. Stating she wanted to go home. I explained her that we are want to work on her pain as well as her infection. 10/25 Patient has pain relatively controlled with medications. Laboratory work shown improvement. Patient mentation improved. When I discussed been able to get her back to advance likely tomorrow she was extremely happy and cried a little bit. I told her that because of the urinary tract infection that we could not do an injection in her back at this time but that she would build to follow-up with pain management and they could inject her when they felt it was appropriate. Review of Systems: denies headache/fever/chills/nausea/vomiting/chest or abdominal pa in/cough/dyspnea. Otherwise see above. - Constitutional Vitals: Vital Signs Temp Pulse Resp BP Pulse Ox 99.2 F H 67 16 96/55 95 10/25/18 04:01 10/25/18 04:27 10/25/18 04:01 10/25/18 04:01 10/25/18 04:27 Period Temp Pulse Resp BP Sys/Bell Pulse Ox Last 24 Hr 96.7 F-99.8 F 64-79 16-16 77-137/40-84 93-100 Intake and Output 10/24/18 10/25/18 10/25/18 21:59 05:59 13:59 Intake Total 250 38 Output Total 350 250 Balance -100 -212 Weight 55.792 kg Intake & Output: Intake & Output 10/24/18 10/25/18 10/25/18 21:59 05:59 13:59 Intake Total 250 38 Output Total 350 250 Balance -100 -212 Weight 55.792 kg Intake: IV 50 38 Zosyn 2.25 gm In Dextrose 5% in 50 38 Water 50 ml @ 100 mls/hr IV Q6H [facility] Rx#:[id number] Oral 200 Output: Urine Catheter Amount 350 250 Other: Urine Appearance Uretheral (Salazar) Clear Urine Color Light Patricia Uretheral (Salazar) Light Patricia Exam: General: awake, alert Eyes/N/T: EOMI, Head/Neck: neck supple, CV: RRR, No murmurs, Pulm: Clear b/l, no wheezing/rhonchi/rales Abd: soft, nontender, +BS x4 Ext: no clubbing/cyanosis. 2+ b/l LE edema chronic Neuro: awake, answers questions appropriately, no focal deficits, moves all extremities, Skin: warm/dry, venous stasis changes to lower extremities Medical - PN: Obj Da - Labs CBC & Chem 7: 10/24/18 04:15 10/25/18 04:15 Labs: Abnormal Lab Results 10/25/18 10/24/18 10/24/18 04:15 04:15 04:15 WBC 4.2 L RBC 3.41 L Hgb 10.1 L Hct 30.4 L RDW 19.2 H MPV Prentiss % (Auto) Lymph # (Auto) RBC Morphology Abnorm A Anisocytosis 1+ A Sodium Chloride BUN 29 H Creatinine 1.3 H 1.3 H Lactate Dehydrogenase 268 H Total Creatine Kinase 10/24/18 10/23/18 10/23/18 04:15 04:00 04:00 WBC RBC Hgb Hct RDW MPV Prentiss % (Auto) Lymph # (Auto) RBC Morphology Anisocytosis Sodium 130 L Chloride 94 L BUN 32 H Creatinine 1.4 H Lactate Dehydrogenase 283 H Total Creatine Kinase 280 H 394 H 10/23/18 04:00 WBC 3.5 L RBC 3.51 L Hgb 10.4 L Hct 31.2 L RDW 18.3 H MPV 10.7 H Prentiss % (Auto) 13.9 H Lymph # (Auto) 0.7 L RBC Morphology Anisocytosis Sodium Chloride BUN Creatinine Lactate Dehydrogenase Total Creatine Kinase Meds: Medications Acetaminophen (Tylenol) 500 mg PO Q6HP PRN PRN Reason: PAIN/FEVER > 101 Last Admin: 10/24/18 00:37 Dose: 500 mg Documented by: Hydrocodone Bitart/Acetaminophen ([place] 10/325mg) 1 tab PO Q4HP PRN PRN Reason: Pain Last Admin: 10/25/18 03:14 Dose: 1 tab Documented by: Albuterol Sulfate (Ventolin) 0 puff IH PRN PRN PRN Reason: Shortness Of Breath Albuterol/Ipratropium (Duoneb) 3 ml NEB Q4HP PRN PRN Reason: Shortness Of Breath Aspirin (Aspirin) 81 mg PO DAILY [facility] Last Admin: 10/24/18 09:02 Dose: 81 mg Documented by: Cyanocobalamin (Vitamin B-12) 1,000 mcg PO DAILY [facility] Last Admin: 10/24/18 09:03 Dose: 1,000 mcg Documented by: Docusate Sodium (Colace) 100 mg PO BID [facility] Last Admin: 10/24/18 20:46 Dose: 100 mg Documented by: Enoxaparin Sodium (Lovenox) 40 mg SQ DAILY [facility] Last Admin: 10/24/18 09:03 Dose: 40 mg Documented by: Ergocalciferol (Drisdol) 50,000 unit PO Carvalho@0900 [facility] Famotidine (Pepcid) 20 mg PO HS [facility] Last Admin: 10/24/18 20:46 Dose: 20 mg Documented by: Ferrous Sulfate (Ferrous Sulfate) 325 mg PO BIDCC [facility] Last Admin: 10/24/18 18:02 Dose: 325 mg Documented by: Hydroxyzine HCl (Atarax) 50 mg PO BIDP PRN PRN Reason: Allergic Symptoms Hydroxyzine HCl (Vistaril) 50 mg IM BIDP PRN PRN Reason: ALLERGIC SYMPTOMS Magnesium Sulfate (Magnesium Sulfate) 2 gm in 50 mls @ 50 mls/hr IV UD PRN PRN Reason: Magnesium </= 1.6 Piperacillin Sod/Tazobactam (Sod 2.25 gm/ Dextrose) 50 mls @ 100 mls/hr IV Q6H [facility]; Protocol Last Admin: 10/25/18 05:23 Dose: 100 mls/hr Documented by: Lactulose (Cephulac) 10 gm PO DAILYP PRN PRN Reason: Constipation Last Admin: 10/22/18 17:46 Dose: 10 gm Documented by: Lidocaine (Lidoderm) 1 patch TOPICAL DAILY@1000 [facility] Last Admin: 10/24/18 09:03 Dose: 1 patch Documented by: Methocarbamol (Robaxin) 750 mg PO Q6HP PRN PRN Reason: Pain Last Admin: 10/24/18 19:56 Dose: 750 mg Documented by: Morphine Sulfate (Morphine) 2 - 4 mg IV Q3HP PRN PRN Reason: PAIN LEVEL > 6 Last Admin: 10/25/18 06:19 Dose: 2 mg Documented by: Ondansetron HCl (Zofran) 4 mg IV Q4HP PRN PRN Reason: Nausea And Vomiting Polyethylene Glycol (Miralax) 17 gm PO DAILYP PRN PRN Reason: Constipation Last Admin: 10/22/18 13:01 Dose: 17 gm Documented by: Potassium Chloride (Kdur) 40 meq PO UD PRN PRN Reason: Potssium is 3-3.5 Potassium Chloride (Kdur) 40 meq PO UD PRN PRN Reason: Potassium < 3 Senna (Senokot) 2 tab PO HSP PRN PRN Reason: Constipation Sodium Chloride (Saline Flush) 10 ml IV Q8 [facility] Last Admin: 10/25/18 05:24 Dose: 10 ml Documented by: Sodium Chloride (Sodium Chloride) 1 gm PO BID [facility] Last Admin: 10/24/18 20:46 Dose: 1 gm Documented by: Medical - PN: A/P - Time Spent With Patient Total time spent is greater than 50% in coordination of care (as documented) at patient's floor/unit and/or counseling patient: - Narrative A/P Narrative: A: *AMS (decreased LOC): Multifactorial including sedating medications / metabolic / infectious / poor sleep. IMproved -She has been on gabapentin and Robaxin and [place] -CT brain with mild atrophy and chronic ischemic white matter dz; no co2 retention, ammonia wnl -mentation waxes/wanes -likely take a while for meds to clear, especially orlin *Hyponatremia (h/o same) likely SIAHD: -REsolved *Hyperkalemia: Secondary to Aldactone in the setting of CKD -Resolved *Chronic LBP w/radiculopathy and Right hip pain: Has had epidural in the past with success. Follows with pain management -CT showed anatomical alignment without loosening or infection of hip joint *metabolic acidosis, non-gap; not adrenal, good response to acth stim tet. -REsolved *UTI (E. coli): *Bacteremia (Clostridium perfringens / bottles): CT ab/pel no found source of entry *PVD, with stent to the leg by Dr. Jones: *CKD III (baseline ~1.3): follows with Dr. Dubois - *MAXINE & B12 deficiency: stable *Generalized weakness/deconditioning/debility: *GERD: *Tobacco abuse: *Chronic peripheral edema *Leukopenia: noted during [facility] admission. stable *h/o NSCLC: *Constipation: resolved *Anxiety: *Pt had right MC beginning of this year for severe OA: has had decline since P: -Monitor electrolytes, fluid restrict, salt tabs -Pain control with heating pad/muscle relaxer/narcotics but with caution. -consulted Dr. Aguayo, recommended MRI and attempted but patient uncooperative. Unable to perform any injections until infections appropriately treated -Aldactone stopped, hold lasix for now -zosyn, pending final and repeat blood C&S. change to flagyl/cipro -case discussed with ID, pending repeat BC -PT/OT -Smoking cessation counseling -bowel regimen -ppx: lovenox/home ppi Medical - PN: Qual - Stroke Symptom Onset Unknown: No - VTE Deep Vein Thrombosis/Pulmonary Embolism Present on Admission: No
[2018-10-25] MEDS: FERROUS SULFATE 325 MG TABLET PO SCH ×2 (07:58→16:43)
[2018-10-25] MEDS ORDERED: ERGOCALCIFEROL (VITAMIN D2) 50,000 UNIT CAPSULE PO SCH (09:00)
[2018-10-25] MEDS: CYANOCOBALAMIN (VITAMIN B-12) 500 MCG TABLET PO SCH (10:24)
[2018-10-25] MEDS: ASPIRIN 81 MG TAB.CHEW PO SCH (10:24)
[2018-10-25] MEDS: ENOXAPARIN 40 MG/0.4 ML SYRINGE SQ SCH (10:24)
[2018-10-25] MEDS: DOCUSATE SODIUM 100 MG CAPSULE PO SCH ×2 (10:24→21:52)
[2018-10-25] MEDS: SODIUM CHLORIDE 1 GM TABLET PO SCH ×2 (10:24→21:53)
[2018-10-25] MEDS: LIDOCAINE PATCH TOPICAL SCH (10:25)
--- NOTE | 2018-10-25 11:14 | Discharge Summary ---
Medical - DS: Prov Patient information: Note initiated : 10/25/18 at 11:09 am Service Date, if different from initiated Date: [] Patient: Nany Lara 73 y/o F admitted on 10/21/18 for Altered Mental Status. Chief Complaint: [] Date of admission: 10/21/18 22:30 Discharge date: 10/26/18 Primary care physician: Jordan Snell Consults: 10/21/18 17:26 Consult to Physician [CONS] Stat Comment: Consulting Provider: Jose Hays Reason For Exam: Physician to Consult 10/22/18 10:54 Consult to Physician [CONS] Routine Comment: acute on chronic pain, intractable Consulting Provider: Brijesh Aguayo Reason For Exam: Physician to Consult Medical - DS: Meds - Discharge Medications Prescriptions: Ciprofloxacin [Cipro] 250 mg PO BID #18 tab Gabapentin [Neurontin] 200 mg PO HS #20 cap metroNIDAZOLE [Flagyl] 500 mg PO TID #27 tab Active and Home Medications: Home Medications Albuterol Sulfate [Proventil Hfa] 6.7 gm IH PRN PRN 10/21/18 [History Confirmed 10/21/18 Last Taken Unknown] Aspirin [Lite Coat Aspirin] 325 mg PO DAILY 10/21/18 [History Confirmed 10/21/18 Last Taken Unknown] Cyanocobalamin (Vitamin B-12) [Vitamin B-12] 1,000 mcg PO DAILY 10/21/18 [History Confirmed 10/21/18 Last Taken Unknown] Ergocalciferol (Vitamin D2) [Vitamin D2] 50,000 unit PO WEEKLY 10/21/18 [History Confirmed 10/21/18 Last Taken Unknown] Ferrous Sulfate [Iron] 325 mg PO BID 10/21/18 [History Confirmed 10/21/18 Last Taken Unknown] Furosemide [Lasix] 40 mg PO DAILY 10/21/18 [History Confirmed 10/21/18 Last Taken Unknown] Gabapentin 600 mg PO BID 10/21/18 [History Confirmed 10/21/18 Last Taken Unknown] HYDROcodone/ACETAMINOPHEN [[place] 10-325 Tablet] 1 each PO PRN PRN 10/21/18 [History Confirmed 10/21/18 Last Taken Unknown] Lidocaine [Lidocaine Pain Relief] 1 each TP DAILY 10/21/18 [History Confirmed 10/21/18 Last Taken Unknown] Methocarbamol [Robaxin-750] 750 mg PO Q6 PRN 10/21/18 [History Confirmed 10/21/18 Last Taken Unknown] Ranitidine HCl [Heartburn Relief] 150 mg PO BID 10/21/18 [History Confirmed 10/21/18 Last Taken Unknown] Home Medications Albuterol Sulfate [Proventil Hfa] 6.7 gm IH PRN PRN 10/21/18 [History Confirmed 10/21/18 Last Taken Unknown] Aspirin [Lite Coat Aspirin] 325 mg PO DAILY 10/21/18 [History Confirmed 10/21/18 Last Taken Unknown] Cyanocobalamin (Vitamin B-12) [Vitamin B-12] 1,000 mcg PO DAILY 10/21/18 [History Confirmed 10/21/18 Last Taken Unknown] Ergocalciferol (Vitamin D2) [Vitamin D2] 50,000 unit PO WEEKLY 10/21/18 [History Confirmed 10/21/18 Last Taken Unknown] Ferrous Sulfate [Iron] 325 mg PO BID 10/21/18 [History Confirmed 10/21/18 Last Taken Unknown] Furosemide [Lasix] 40 mg PO DAILY 10/21/18 [History Confirmed 10/21/18 Last Taken Unknown] HYDROcodone/ACETAMINOPHEN [[place] 10-325 Tablet] 1 each PO PRN PRN 10/21/18 [History Confirmed 10/21/18 Last Taken Unknown] Lidocaine [Lidocaine Pain Relief] 1 each TP DAILY 10/21/18 [History Confirmed 10/21/18 Last Taken Unknown] Methocarbamol [Robaxin-750] 750 mg PO Q6 PRN 10/21/18 [History Confirmed 10/21/18 Last Taken Unknown] Ranitidine HCl [Heartburn Relief] 150 mg PO BID 10/21/18 [History Confirmed 10/21/18 Last Taken Unknown] Ciprofloxacin [Cipro] 250 mg PO BID #4 tab 10/25/18 [Rx Last Taken Unknown] Gabapentin 200 mg PO QHS #10 tab 10/25/18 [Rx Last Taken Unknown] metroNIDAZOLE [Flagyl] 500 mg PO TID #9 tab 10/25/18 [Rx Last Taken Unknown] Home gabapentin reduced because of sedation Spironolactone DC'd because of hyperkalemia Medical - DS: Hosp Hospital course: Ms. Lara is a 73 year old F Who [facility] with decreased level of consciousness /weakness. While she was here she also was noted to complain of her chronic back pain with radiculopathy, but this was not the primary reason why she was sent in. Patient was at [facility] 3 weeks ago for hyperkalemia. Her Aldactone was stopped. However it still on her medication list does sound like she is been getting it at the nursing facility. He was found to have calcium 6.3 when she came in and a sodium of 126. She reports poor oral intake cannel not much else other than coffee. She had a CT brain which is unremarkable EKG showed no changes from previous she had a lumbar CT which does show degenerative joint and disc protrusions no acute fractures. I do not have all labs but apparently from the ED note her creatinine is 1.3 and it was recently 1.5. She is on [place] as well as Robaxin and gabapentin. She has received an epidural injection by Dr. Jones in the recent past which could improvement in radiculopathy. It sounds like she sees [facility] pain management as well. She denies any complaints other than feeling weak. She is drowsy in the ED after narcotic medications for pain. She is sitting up in bed does not complain of any pain at this time. Family member states that when she is laying on her back is when she is in significant amount of pain but when she sitting up she is comfortable. She did receive IV fluids with Lasix and calcium gluconate and a repeat potassium which was 5.4. 10/22 Patient slept all right last night. Per nurse morphine seems to make her quite drowsy. I saw this morning she was awake and answering questions. She states her pain starts in the right back hip region as described as a shooting pain down the back of her leg to her right knee. Family is present. Denies any other complaints. Urine culture growing gram-negative bacillus and 104 blood draws growing gram-positive bacillus. Cortisol level low and ACTH stimulation test pending. Family she sees Dr. Benavides and will contact him regarding eventual possible epidural injection and further recommendations in the meantime. 10/23 Poor sleep last night. Lethargic this morning. Sitting in chair and nodding off. Arousable but then nods off. Unable to get MRI yesterday patient uncooperative. CT with lumbar DJD and right hip osteoarthritis. Electrolytes improved. ABG okay with no CO2 retention.. 10/24 Per nightman patient appeared to be more comfortable. Had several bowel movements now as was constipated earlier. Expressed to nurse this morning that she did not have any pain but by the time when she started having pain again. Stating she wanted to go home. I explained her that we are want to work on her pain as well as her infection. 10/25 Patient has pain relatively controlled with medications. Laboratory work shown improvement. Patient mentation improved. When I discussed been able to get her back to advance likely tomorrow she was extremely happy and cried a little bit. I told her that because of the urinary tract infection that we could not do an injection in her back at this time but that she would build to follow-up with pain management and they could inject her when they felt it was appropriate. Case discussed with ID and will do a total of 2 weeks of antibiotics discharge with Cipro and Flagyl 10/26 No overnight events patient does have pain, relatively controlled medications. Mentation good. Patient happy to go home. Stable for discharge. However, patient high risk for readmission given significant comorbidities and generalized decline this year, and age. Discharge diagnosis: chronic back pain acute on chronic intractable back pain with radicu Secondary discharge diagnosis: Altered mental status described as decreased level of consciousness multifactorial E. coli urinary tract infection Clostridium perfringens bacteremia hyponatremia and hyperkalemia Chronic kidney disease B12 and iron deficiency anemia Peripheral vascular disease Generalized weakness/deconditioning/debility GERD Tobacco abuse Chronic peripheral edema History of leukopenia History of non-small small non-small cell lung cancer Constipation Anxiety anxiety Low cortisol, ACTH stimulation test ruled out primary adrenal insufficiency - Time Spent with Patient Total time spent providing and/or coordinating discharge services: Greater than 30 minutes Medical - DS: Exam - Constitutional Vitals: Vital Signs Temp Pulse Resp BP BP Pulse Ox 10/25/18 04:27 67 95 10/25/18 04:01 99.2 F H 64 16 96/55 93 10/25/18 01:00 73 128/57 100 10/25/18 00:01 98.0 F 65 90/48 94 10/24/18 22:58 79 103/84 94 10/24/18 20:24 99.8 F H 73 16 137/61 96 10/24/18 19:43 72 77/40 96 10/24/18 15:13 92/69 10/24/18 12:43 10/24/18 11:54 10/24/18 11:51 98.2 F 16 97 Intake and Output 10/24/18 10/25/18 10/25/18 21:59 05:59 13:59 Intake Total 250 38 50 Output Total 350 250 Balance -100 -212 50 Intake: IV 50 38 50 Zosyn 2.25 gm In Dextrose 5% in 50 38 50 Water 50 ml @ 100 mls/hr IV Q6H [facility] Rx#:[id number] Oral 200 Output: Urine Catheter Amount 350 250 Other: Urine Appearance Uretheral (Salazar) Clear Urine Color Light Patricia Uretheral (Salazar) Light Patricia Weight 55.792 kg Medical - DS: Data Labs on day of discharge: Labs from last 24 hours 10/25/18 04:15 Sodium 135 Potassium 3.9 Chloride 98 Carbon Dioxide 24 Anion Gap 13.0 BUN 21 Creatinine 1.3 H GFR Calculation 41 Glucose 71 Calcium 8.6 Preliminary micro results at discharge 10/23/18 04:10 Blood Culture - Preliminary Blood 10/23/18 04:00 Blood Culture - Preliminary Blood 10/21/18 13:29 Blood Culture - Preliminary Blood 10/21/18 13:23 Blood Culture - Preliminary Blood Gram positive bacillus Medical - DS: A/P - Patient/Caregiver Discharge Instructions Activity: as per physical therapy Diet: Cardiac Additional Instructions: Recommend colonoscopy given her Clostridium bacteremia, follow-up with PCP. Follow-up with PCP/endocrinology regarding low ACTH and evaluation for secondary/tertiary adrenal insufficiency Prescriptions: Gabapentin 200 mg PO QHS #10 tab Ciprofloxacin [Cipro] 250 mg PO BID #18 tab metroNIDAZOLE [Flagyl] 500 mg PO TID #27 tab - Follow up Plan Follow up with: Brijesh Aguayo DO [Physician] - Jordan Snell DO [Primary Care Provider] - (primary adrenal insufficiency ruled out. However ACTH low, pending aldosterone and renin. f/u with PCP. Gabapentin reduced b/c of sedation.) Disposition: Xfer SNF Prognosis: Undetermined Rehab Potential: Fair I certify that the patient requires SNF services: Yes Overall status at discharge: patient is progressing back to baseline Medical - DS: Qual - VTE Deep Vein Thrombosis/Pulmonary Embolism Present on Admission: No
[2018-10-25] MEDS: FAMOTIDINE 20 MG TABLET PO SCH (21:53)
[2018-10-26] MEDS: PIPERACILLIN SODIUM/TAZOBACTAM 2.25 GM in DEXTROSE 5% IN WATER 50 ML IV SCH ×2 (00:11→05:37)
[2018-10-26] MEDS: HYDROcodone/APAP 10/325MG TABLET PO PRN ×2 (02:08→08:18)
[2018-10-26] MEDS: METHOCARBAMOL 750 MG TABLET PO PRN ×2 (02:11→08:19)
[2018-10-26] MEDS: 0.9 % SODIUM CHLORIDE 10 ML SYRINGE IV SCH (05:37)
[2018-10-26] MEDS: FERROUS SULFATE 325 MG TABLET PO SCH (07:49)
[2018-10-26] MEDS: SODIUM CHLORIDE 1 GM TABLET PO SCH (08:19)
[2018-10-26] MEDS: DOCUSATE SODIUM 100 MG CAPSULE PO SCH (08:20)
[2018-10-26] MEDS: ENOXAPARIN 40 MG/0.4 ML SYRINGE SQ SCH (08:20)
[2018-10-26] MEDS: ASPIRIN 81 MG TAB.CHEW PO SCH (08:21)
[2018-10-26] MEDS: CYANOCOBALAMIN (VITAMIN B-12) 500 MCG TABLET PO SCH (08:21)
[2018-10-26 08:37] LABS: Adrenocorticotropic Hormone < 5 pg/mL (6-50)
[2018-10-26] MEDS: LIDOCAINE PATCH TOPICAL SCH (09:51)
== END 2018-10-26 10:27 | DRG 644 ==
LOC: ED 13:06 → ICU 22:25
PROVIDERS: ADMIT Internal Medicine; ATTEND Internal Medicine